=== PATIENT | male | born 1950 | race Caucasian/White ===

== ENCOUNTER 2020-06-20 15:04 | Emergency (ER) | payer MEDICARE, OTHER, SELFPAY ==
[2020-06-20 15:07] VITALS: BP 160/93; PULSE 59; RESP 14; TEMP 37.4; O2SAT 96
[2020-06-20 15:27] LABS: Add Manual Diff / Slide Review NO; Basophils Absolute Auto 0 /uL (0-100); Basophils Percent Auto 0.8 % (0-2); Eosinophils Absolute Auto 100 /uL (0-450); Eosinophils Percent Auto 1.8 % (2-4); Hematocrit 42.9 % (41-53); Hemoglobin 14.5 g/dL (13.5-17.5); Lymphocytes Absolute Auto 1900 /uL (1100-4500); Lymphocytes Percent Auto 30.5 % (25-40); Mean Corpuscular HGB Conc 33.8 % (30-36); Mean Corpuscular Hemoglobin 31.6 PG (26-34); Mean Corpuscular Volume 93.5 fL (80-100); Monocytes Absolute Auto 500 /uL (0-900); Monocytes Percent Auto 8.4 % (3-14); Neutrophils Absolute Auto 3600 /uL (1500-7000); Neutrophils Percent Auto 58.5 % (50-75); Platelet Count 199 X10^3/uL (150-400); Red Blood Cell Count 4.59 X10^6/uL (4.5-5.9); Red Cell Distribution Width 13.5 % (11.6-14.8); White Blood Cell Count 6.1 X10^3/uL (4.5-11.0)
--- NOTE | 2020-06-20 15:34 | DI.CT.S_ITS ---
PROCEDURE: CT ABDOMEN PELVIS WO CON INDICATIONS: RLQ pain, fatigue, diaphoresis, r/o appendicitis TECHNIQUE: After the administration of oral contrast, 5 mm thick sections acquired from the diaphragms to the symphysis. 5 mm coronal and sagittal reformats were performed. For radiation dose reduction, the following was used: automated exposure control, adjustment of mA and/or kV according to patient size. COMPARISON: [facility], CT, ABDOMEN/PELVIS WITHOUT CONTRAS, 04/04/2014, 9:52. FINDINGS: Image quality: Excellent. ABDOMEN: Lung bases: Minimal atelectasis or scarring at the left lung base. No pleural effusion. Heart size is normal. Solid organs: Liver is normal in size. Gallbladder is unremarkable . Pancreas is normal in size. Spleen is normal in size. No adrenal nodules. Punctate bilateral adrenal calcifications are unchanged and which may be due to prior hemorrhage. Both kidneys are normal in size, without hydronephrosis. Punctate kidney stone in the inferior pole the right kidney seen on the remote 2013 prior exam is no longer present. The small cortical hypodensity in the inferior pole of the left kidney is slightly increased in size. Small simple cyst in the inferior pole of the right kidney. Peritoneum and bowel: Bowel loops demonstrate normal wall thickness and caliber. Normal appendix. Diverticulosis. Prominent stool in the right colon. No free fluid or air. Nodes and vessels: No retroperitoneal or mesenteric adenopathy by size criteria. Coarse calcification in the pelvis is unchanged. Aorta and inferior vena cava are normal in size. Moderate calcified atherosclerotic plaque. Miscellaneous: No ventral hernias. PELVIS: Genitourinary: Bladder is unremarkable. Miscellaneous: No inguinal hernias or adenopathy. Bones: No suspicious bony lesions. Moderate DDD. No vertebral body compression fractures. IMPRESSION: 1. No acute appendicitis. 2. No hydronephrosis. No kidney stones. Note: The remote kidney stone seen in 2013 is no longer present. 3. Diverticulosis without diverticulitis. 4. Prominent stool in the right colon. Dictated by: Primitivo Taylor M.D. on 06/20/2020 at 15:56 Approved by: Primitivo Taylor M.D. on 06/20/2020 at 16:05
[2020-06-20 15:36] LABS: INR 1.1 (0.9-1.3); Prothrombin Time 12.5 SECONDS (10.1-12.7)
[2020-06-20 15:39] LABS: PTT Partial Thromboplastin Tim 33 SECONDS (26.4-36.2)
[2020-06-20 15:40] LABS: Alanine Aminotransferase 19 IU/L (<50); Albumin 4.2 g/dL (3.5-5.0); Albumin Globulin Ratio 1.4 (1.0-2.8); Alkaline Phosphatase 133 U/L (38-126); Aspartate Aminotransferase 40 IU/L (17-59); BUN Creatinine Ratio 17.2 (6-22); Bilirubin Total 1.9 mg/dL (0.2-1.3); Blood Urea Nitrogen 11 mg/dL (9-20); Calcium 9.3 mg/dL (8.4-10.2); Carbon Dioxide 26 mmol/L (22-32); Chloride 106 mmol/L (98-107); Estimated Glomerular Filt Rate > 60.0 mL/min (>60); Globulin 2.9 g/dL (1.7-4.1); Glucose 95 mg/dL (80-110); HEMOLYSIS < 15 (0-50); Lipase 78 U/L (23-300); Potassium 3.9 mmol/L (3.4-5.1); Sodium 138 mmol/L (137-145); Total Protein 7.1 g/dL (6.3-8.2)
--- NOTE | 2020-06-20 15:46 | ED.ABDPAIN ---
HPI - Abdominal Pain <DON Taylor - Last Filed: 06/20/20 21:13> General Chief Complaint: Abdominal Pain Stated Complaint: ABD PAIN SLIGHT FEVER Time Seen by Provider: 06/20/20 15:22 Source: patient Mode of arrival: Ambulatory History of Present Illness HPI narrative: 70yo male presents to the ED for right lower quadrant abdominal pain that started a few days ago. He states he has been dealing with this issue intermittently for the past month. However, approximately 3 days ago he developed worsening pain. Patient states he ate dinner last night and noticed the pain was worse, he does report a gets better when he sleeps on his left side. Patient states that he woke up in the middle the night with severe pain and sweating. This morning pain had slightly resolved. He denies any history of abdominal surgeries, diabetes, history of cancer, or other concerns. Patient denies any vomiting, does report intermittent nausea but denies diarrhea, chest pain, shortness of breath, dizziness, syncope, or other concerns. Related Data Home Medications Medication Instructions Recorded Confirmed aspirin 81 mg PO QDAY #0 06/26/16 Previous Rx's Medication Instructions Recorded lisinopril 10 mg PO QDAY #90 tab 12/23/16 Allergies Allergy/AdvReac Type Severity Reaction Status Date / Time No Known Drug Allergies Allergy Verified 06/20/20 15:10 Review of Systems <DON Taylor - Last Filed: 06/20/20 21:13> Review of Systems Narrative: REVIEW OF SYSTEMS: GENERAL: Denies fever, chills, malaise, or wt. loss. HENT: No head trauma, sore throat, or dysphagia. EYES: No loss of vision, double vision, eye pain, or irritation. CARDIOVASCULAR: No chest pain, palpitations, or orthopnea. RESPIRATORY: No shortness of breath or cough. GASTROINTESTINAL: Complains of right lower quadrant abdominal pain, see HPI GENITOURINARY: No flank pain, urinary incontinence, hesitancy, frequency, or dysuria. MUSCULOSKELETAL: No pain, weakness, or trauma. INTEGUMENTARY: No rash, lesions, or pruritus. NEURO: No numbness, tingling, memory loss, confusion, or headaches. PSYCH: No behavior or mood changes. Patient History <DON Taylor - Last Filed: 06/20/20 21:13> Medical History No significant medical problems (Acute) Social History Smoking Status: Never smoker Smoking Status: Never smoker alcohol intake frequency: 0-2 drinks per day Exam <DON Taylor - Last Filed: 06/20/20 21:13> Initial Vital Signs Initial Vital Signs: Vital Signs Temperature 99.4 F 06/20/20 15:07 Pulse Rate 59 L 06/20/20 15:07 Respiratory Rate 14 06/20/20 15:07 Blood Pressure 160/93 H 06/20/20 15:07 Pulse Oximetry 96 06/20/20 15:07 PHYSICAL EXAMINATION: GENERAL: Well groomed, alert, and cooperative. Answers questions promptly and appropriately. Vital signs noted. HENT: Normocephalic, atraumatic. Hearing intact. Oral mucosa is pink and moist. EYES: Conjunctiva pink, sclera white, no periorbital swelling. CARDIOVASCULAR: S1 and S2 sounds normal. Regular rate and rhythm, no murmurs, clicks, or bruits. No pedal edema. RESPIRATORY: Normal respiratory rate, trachea midline, airway patent. No stridor, nasal flaring or accessory muscle use. Lungs are clear in all hyatt without wheeze, rhonchi, or crackles. GASTROINTESTINAL: Bowel sounds normoactive. Abdomen is soft, right lower quadrant tender. No organomegaly, no palpable masses. GENITALURINARY: No flank tenderness. MUSCULOSKELETAL: Normal gait and coordination. Equal tone and mass bilaterally. EXTREMITIES: CMS intact, no pedal edema. SKIN: Warm, dry, soft, appropriate color for ethnicity. No lesions, rashes, or wounds to visualized areas. NEURO: Alert and Oriented X 3. Good coordination. No ataxia, or sensory deficits, or cognitive issues. PSYCH: Appropriate affect and mood. <Carlitos Harris MD - Last Filed: 06/21/20 13:29> Initial Vital Signs Initial Vital Signs: Vital Signs Temperature 99.4 F 06/20/20 15:07 Pulse Rate 59 L 06/20/20 15:07 Respiratory Rate 14 06/20/20 15:07 Blood Pressure 160/93 H 06/20/20 15:07 Pulse Oximetry 96 06/20/20 15:07 Course <Alyssa DON Liz - Last Filed: 06/20/20 21:13> Orders Ordered: ED Orders 06/20/20 15:16 EKG-12 Lead Stat 06/20/20 15:20 Complete Blood Count AUTO DIFF Stat Comprehensive Metabolic Panel Stat Lipase Stat Partial Thromboplastin Time Stat Prothrombin Time INR Stat 06/20/20 15:27 Urine Microscopic Stat 06/20/20 15:34 CT abdomen pelvis wo con Stat Vital Signs Vital signs: Vital Signs - 8 hr 06/20/20 15:07 06/20/20 17:15 Temperature 99.4 F Pulse Rate 59 L 60 Respiratory Rate 14 16 Blood Pressure 160/93 H Pulse Oximetry 96 96 <Carlitos Harris MD - Last Filed: 06/21/20 13:29> Orders Ordered: ED Orders 06/20/20 15:16 EKG-12 Lead Stat 06/20/20 15:20 Complete Blood Count AUTO DIFF Stat Comprehensive Metabolic Panel Stat Lipase Stat Partial Thromboplastin Time Stat Prothrombin Time INR Stat 06/20/20 15:27 Urine Microscopic Stat 06/20/20 15:34 CT abdomen pelvis wo con Stat Vital Signs Vital signs: Vital Signs - 8 hr 06/20/20 15:07 06/20/20 17:15 Temperature 99.4 F Pulse Rate 59 L 60 Respiratory Rate 14 16 Blood Pressure 160/93 H Pulse Oximetry 96 96 MDM - Abdominal Pain <Alyssa ThompsonDON owen - Last Filed: 06/20/20 21:13> Medical Records Attestation: I reviewed the patient's medical records. Lab Data Attestation: I reviewed the patient's lab results. Result diagrams: 06/20/20 15:20 06/20/20 15:20 Labs: Lab Results 06/20/20 06/20/20 06/20/20 Range/Units 15:20 15:20 15:20 WBC 6.1 (4.5-11.0) X10^3/uL RBC 4.59 (4.5-5.9) X10^6/uL Hgb 14.5 (13.5-17.5) g/dL Hct 42.9 (41-53) % MCV 93.5 (80-100) fL MCH 31.6 (26-34) PG MCHC 33.8 (30-36) % RDW 13.5 (11.6-14.8) % Plt Count 199 (150-400) X10^3/uL Neut % (Auto) 58.5 (50-75) % Lymph % (Auto) 30.5 (25-40) % [place] % (Auto) 8.4 (3-14) % Eos % (Auto) 1.8 L (2-4) % Baso % (Auto) 0.8 (0-2) % Neut # (Auto) 3600 (9013-3789) /uL Lymph # (Auto) 1900 (8998-4244) /uL [place] # (Auto) 500 (0-900) /uL Eos # (Auto) 100 (0-450) /uL Baso # (Auto) 0 (0-100) /uL PT 12.5 (10.1-12.7) SECONDS INR 1.1 (0.9-1.3) APTT 33 (26.4-36.2) SECONDS Sodium 138 (137-145) mmol/L Potassium 3.9 (3.4-5.1) mmol/L Chloride 106 (98-107) mmol/L Carbon Dioxide 26 (22-32) mmol/L BUN 11 (9-20) mg/dL Creatinine 0.64 L (0.66-1.25) mg/dL Estimated GFR > 60.0 (>60) mL/min BUN/Creatinine Ratio 17.2 (6-22) Glucose 95 (80-110) mg/dL Calcium 9.3 (8.4-10.2) mg/dL Total Bilirubin 1.9 H (0.2-1.3) mg/dL AST 40 (17-59) IU/L ALT 19 (<50) IU/L Alkaline Phosphatase 133 H (38-126) U/L Total Protein 7.1 (6.3-8.2) g/dL Albumin 4.2 (3.5-5.0) g/dL Globulin 2.9 (1.7-4.1) g/dL Albumin/Globulin Ratio 1.4 (1.0-2.8) Lipase 78 (23-300) U/L Urine RBC (0-5/HPF) Urine WBC (0-5/HPF) Ur Squamous Epith Cells (0-5/HPF) Amorphous Sediment Urine Bacteria (None) Urine Mucus (Negative) Ur Culture Indicated? 06/20/20 Range/Units 15:27 WBC (4.5-11.0) X10^3/uL RBC (4.5-5.9) X10^6/uL Hgb (13.5-17.5) g/dL Hct (41-53) % MCV (80-100) fL MCH (26-34) PG MCHC (30-36) % RDW (11.6-14.8) % Plt Count (150-400) X10^3/uL Neut % (Auto) (50-75) % Lymph % (Auto) (25-40) % [place] % (Auto) (3-14) % Eos % (Auto) (2-4) % Baso % (Auto) (0-2) % Neut # (Auto) (3198-1553) /uL Lymph # (Auto) (9117-3738) /uL [place] # (Auto) (0-900) /uL Eos # (Auto) (0-450) /uL Baso # (Auto) (0-100) /uL PT (10.1-12.7) SECONDS INR (0.9-1.3) APTT (26.4-36.2) SECONDS Sodium (137-145) mmol/L Potassium (3.4-5.1) mmol/L Chloride (98-107) mmol/L Carbon Dioxide (22-32) mmol/L BUN (9-20) mg/dL Creatinine (0.66-1.25) mg/dL Estimated GFR (>60) mL/min BUN/Creatinine Ratio (6-22) Glucose (80-110) mg/dL Calcium (8.4-10.2) mg/dL Total Bilirubin (0.2-1.3) mg/dL AST (17-59) IU/L ALT (<50) IU/L Alkaline Phosphatase (38-126) U/L Total Protein (6.3-8.2) g/dL Albumin (3.5-5.0) g/dL Globulin (1.7-4.1) g/dL Albumin/Globulin Ratio (1.0-2.8) Lipase (23-300) U/L Urine RBC 0-1/hpf (0-5/HPF) Urine WBC 1-5/hpf (0-5/HPF) Ur Squamous Epith Cells 0-1 /hpf (0-5/HPF) Amorphous Sediment 3+ Urine Bacteria Occasional (0-1) (None) Urine Mucus 2+ H (Negative) Ur Culture Indicated? Cult not indicated Point of care testing: Urine Dip Bedside Urine Glucose Negative Bedside Urine Bilirubin - Negative Bedside Urine Ketone + 15 Urine Specific Bude 1.015 Bedside Urine Occult Blood - Negative Bedside Urine pH 7.0 Bedside Urine Protein +/- 15 Bedside Urine Urobilinogen +/- 1mg Bedside Urine Nitrite - Negative Bedside Urine Leukocytes - Negative Esterase Imaging Data CT scan - abdomen/pelvis: Radiologist's Impression: [address] [address] [address] Scan Report Signed Patient: Piter Peters LMR#: [id number] : 2Acct:[id number] Age/Sex: 70 / MDate of Service: 06/20/20 Loc: ED Accession Number: [id number] Procedure: CT abdomen pelvis wo con Ordering Provider: Alyssa Liz PROCEDURE: CT ABDOMEN PELVIS WO CON INDICATIONS: RLQ pain, fatigue, diaphoresis, r/o appendicitis TECHNIQUE: After the administration of oral contrast, 5 mm thick sections acquired from the diaphragms to the symphysis. 5 mm coronal and sagittal reformats were performed. For radiation dose reduction, the following was used: automated exposure control, adjustment of mA and/or kV according to patient size. COMPARISON: [facility], CT, ABDOMEN/PELVIS WITHOUT CONTRAS, 04/04/2014, 9:52. FINDINGS: Image quality: Excellent. ABDOMEN: Lung bases: Minimal atelectasis or scarring at the left lung base. No pleural effusion. Heart size is normal. Solid organs: Liver is normal in size. Gallbladder is unremarkable . Pancreas is normal in size. Spleen is normal in size. No adrenal nodules. Punctate bilateral adrenal calcifications are unchanged and which may be due to prior hemorrhage. Both kidneys are normal in size, without hydronephrosis. Punctate kidney stone in the inferior pole the right kidney seen on the remote 2013 prior exam is no longer present. The small cortical hypodensity in the inferior pole of the left kidney is slightly increased in size. Small simple cyst in the inferior pole of the right kidney. Peritoneum and bowel: Bowel loops demonstrate normal wall thickness and caliber. Normal appendix. Diverticulosis. Prominent stool in the right colon. No free fluid or air. Nodes and vessels: No retroperitoneal or mesenteric adenopathy by size criteria. Coarse calcification in the pelvis is unchanged. Aorta and inferior vena cava are normal in size. Moderate calcified atherosclerotic plaque. Miscellaneous: No ventral hernias. PELVIS: Genitourinary: Bladder is unremarkable. Miscellaneous: No inguinal hernias or adenopathy. Bones: No suspicious bony lesions. Moderate DDD. No vertebral body compression fractures. IMPRESSION: 1. No acute appendicitis. 2. No hydronephrosis. No kidney stones. Note: The remote kidney stone seen in 2013 is no longer present. 3. Diverticulosis without diverticulitis. 4. Prominent stool in the right colon. Dictated by: Primitivo Taylor M.D. on 06/20/2020 at 15:56 Approved by: Primitivo Taylor M.D. on 06/20/2020 at 16:05 MDM Narrative Medical decision making narrative: 70-year-old male presents emergency department for right lower quadrant abdominal pain. Less likely infectious such as acute appendicitis given mode blood cell count, patient is afebrile, non tachycardic, and no visualized appendicitis or inflammation seen on abdominal CT. Less likely renal calculi given lack of renal calculi seen on CT, no flank pain. Unsure exact cause, differential includes constipation given stool seen on CT or muscle strain. Less likely gallbladder etiology given lack of concerning findings on CT, no right upper quadrant abdominal pain. However, patient was informed of slightly elevated liver enzymes and bilirubin, he states this has been present in his history in the past for the past few years. Patient was encouraged to follow up with his PCP in the next 1-2 weeks for further evaluation and discussion of possible further testing symptoms continue. Return precautions given for new or worsening symptoms. Patient agreed to plan of care verbalized understanding. <Carlitos Harris MD - Last Filed: 06/21/20 13:29> Lab Data Labs: Lab Results 06/20/20 06/20/20 06/20/20 Range/Units 15:20 15: 15: WBC 6.1 (4.5-11.0) X10^3/uL RBC 4.59 (4.5-5.9) X10^6/uL Hgb 14.5 (13.5-17.5) g/dL Hct 42.9 (41-53) % MCV 93.5 (80-100) fL MCH 31.6 (26-34) PG MCHC 33.8 (30-36) % RDW 13.5 (11.6-14.8) % Plt Count 199 (150-400) X10^3/uL Neut % (Auto) 58.5 (50-75) % Lymph % (Auto) 30.5 (25-40) % [place]t % (Auto) 8.4 (3-14) % Eos % (Auto) 1.8 L (2-4) % Baso % (Auto) 0.8 (0-2) % Neut # (Auto) 3600 (2429-5069) /uL Lymph # (Auto) 1900 (4881-7848) /uL [place] # (Auto) 500 (0-900) /uL Eos # (Auto) 100 (0-450) /uL Baso # (Auto) 0 (0-100) /uL PT 12.5 (10.1-12.7) SECONDS INR 1.1 (0.9-1.3) APTT 33 (26.4-36.2) SECONDS Sodium 138 (137-145) mmol/L Potassium 3.9 (3.4-5.1) mmol/L Chloride 106 (98-107) mmol/L Carbon Dioxide 26 (22-32) mmol/L BUN 11 (9-20) mg/dL Creatinine 0.64 L (0.66-1.25) mg/dL Estimated GFR > 60.0 (>60) mL/min BUN/Creatinine Ratio 17.2 (6-22) Glucose 95 (80-110) mg/dL Calcium 9.3 (8.4-10.2) mg/dL Total Bilirubin 1.9 H (0.2-1.3) mg/dL AST 40 (17-59) IU/L ALT 19 (<50) IU/L Alkaline Phosphatase 133 H (38-126) U/L Total Protein 7.1 (6.3-8.2) g/dL Albumin 4.2 (3.5-5.0) g/dL Globulin 2.9 (1.7-4.1) g/dL Albumin/Globulin Ratio 1.4 (1.0-2.8) Lipase 78 (23-300) U/L Urine RBC (0-5/HPF) Urine WBC (0-5/HPF) Ur Squamous Epith Cells (0-5/HPF) Amorphous Sediment Urine Bacteria (None) Urine Mucus (Negative) Ur Culture Indicated? 06/20/20 Range/Units 15:27 WBC (4.5-11.0) X10^3/uL RBC (4.5-5.9) X10^6/uL Hgb (13.5-17.5) g/dL Hct (41-53) % MCV (80-100) fL MCH (26-34) PG MCHC (30-36) % RDW (11.6-14.8) % Plt Count (150-400) X10^3/uL Neut % (Auto) (50-75) % Lymph % (Auto) (25-40) % [place] % (Auto) (3-14) % Eos % (Auto) (2-4) % Baso % (Auto) (0-2) % Neut # (Auto) (9966-0448) /uL Lymph # (Auto) (2583-6734) /uL [place] # (Auto) (0-900) /uL Eos # (Auto) (0-450) /uL Baso # (Auto) (0-100) /uL PT (10.1-12.7) SECONDS INR (0.9-1.3) APTT (26.4-36.2) SECONDS Sodium (137-145) mmol/L Potassium (3.4-5.1) mmol/L Chloride (98-107) mmol/L Carbon Dioxide (22-32) mmol/L BUN (9-20) mg/dL Creatinine (0.66-1.25) mg/dL Estimated GFR (>60) mL/min BUN/Creatinine Ratio (6-22) Glucose (80-110) mg/dL Calcium (8.4-10.2) mg/dL Total Bilirubin (0.2-1.3) mg/dL AST (17-59) IU/L ALT (<50) IU/L Alkaline Phosphatase (38-126) U/L Total Protein (6.3-8.2) g/dL Albumin (3.5-5.0) g/dL Globulin (1.7-4.1) g/dL Albumin/Globulin Ratio (1.0-2.8) Lipase (23-300) U/L Urine RBC 0-1/hpf (0-5/HPF) Urine WBC 1-5/hpf (0-5/HPF) Ur Squamous Epith Cells 0-1 /hpf (0-5/HPF) Amorphous Sediment 3+ Urine Bacteria Occasional (0-1) (None) Urine Mucus 2+ H (Negative) Ur Culture Indicated? Cult not indicated Point of care testing: Urine Dip Bedside Urine Glucose Negative Bedside Urine Bilirubin - Negative Bedside Urine Ketone + 15 Urine Specific Bude 1.015 Bedside Urine Occult Blood - Negative Bedside Urine pH 7.0 Bedside Urine Protein +/- 15 Bedside Urine Urobilinogen +/- 1mg Bedside Urine Nitrite - Negative Bedside Urine Leukocytes - Negative Esterase Discharge Plan Departure Patient Disposition: Home Clinical Impression: Abdominal pain Qualifiers: Abdominal location: generalized Qualified Code(s): R10.84 - Generalized abdominal pain Discharge Date/Time: 06/20/20 17:16 Instructions: DI for Abdominal Pain-Adult Activity Restrictions/Additional Instructions: Thank you for entrusting me with your care today. As discussed, your CT shows a large amount of stool in the right side of your colon. Your laboratory work shows slightly elevated bilirubin. I recommend increasing fiber in your diet. Please follow up with your primary care provider in the next 1-2 weeks for further evaluation. Return emergency department for any new or worsening symptoms such as high fever, uncontrollable vomiting, severe pain, or other concerns. Prescriptions: No Action aspirin 81 MG tablet,chewable 81 mg PO QDAY Qty: 0 RF: 0 lisinopril 10 MG tablet 10 mg PO QDAY Qty: 90 RF: 3 Referrals: Lewis Coker MD [Primary Care Provider] - <Carlitos Harris MD - Last Filed: 06/21/20 13:29> Cosign ED Attending Cosignature Attestation: I personally evaluated and examined the patient and agree with the assessment, treatment plan, and disposition of the patient as recorded by the APC.
[2020-06-20 15:53] LABS: Amorphous Sediment Urine 3+; Bacteria Urine Occasional (0-1); Mucus Urine 2+ (Negative); RBC Urine 0-1/HPF (0-5/HPF); Squamous Epithelial Cell Urine 0-1 /HPF (0-5/HPF); WBC Urine 1-5/HPF (0-5/HPF)
[2020-06-20 15:54] LABS: Culture Indicated Urine Cult Not Indicated
[2020-06-20 17:15] VITALS: PULSE 60; RESP 16; O2SAT 96
== END 2020-06-20 17:16 | disposition home or self-care (01) ==
PROVIDERS: Emergency Medicine; Emergency Provider Nurse Practitioner; PCP Family Medicine
DX: R10.84 Generalized abdominal pain (principal)
CPT/HCPCS: 74176; 80053; 81003; 81015; 83690; 85025; 85610; 85730; 93005; 99282; 99284

== ENCOUNTER 2023-04-28 11:05 | Emergency (ER) | payer MEDICARE, OTHER, SELFPAY ==
[2023-04-28 11:07] VITALS: BP 186/92; PULSE 67; RESP 17; TEMP 36.3; O2SAT 99; BMI 21.2
--- NOTE | 2023-04-28 11:33 | ED.SKABFB ---
HPI - Skin/Abscess/Foreign Bdy <Carina Valles PA-C - Last Filed: 04/28/23 13:23> General Chief complaint: Skin/Abscess/Foreign Body Stated complaint: swelling RT side of face Time Seen by Provider: 04/28/23 11:20 Source: patient Mode of arrival: Ambulatory Limitations: no limitations History of Present Illness HPI narrative: 73-year-old male with past medical history polymyalgia rheumatica, Raynaud's phenomenon, hypertension, osteoarthritis presents to the ED with 2 days of right-sided facial swelling, burning pain, rash. Patient states that his symptoms started around his right eye, feels his upper eyelid is heavy and droopy. Patient describes pain as burning, feeling like his skin is on fire on the right side of his face and scalp. Patient states his symptoms are especially worse on his upper lip and around the eyes. Patient denies changes in vision, pain inside the eye. Patient states he saw some discharge this morning with some crusting, however it is not purulent. Patient denies fever, chills, chest pain, shortness of breath. Related Data Home Medications Medication Instructions Recorded Confirmed aspirin 81 mg chewable tablet 81 mg PO QDAY ##0 06/26/16 04/25/22 Previous Rx's Medication Instructions Recorded pimecrolimus 1 % topical cream 1 applic topical BID #30 grams 05/11/21 (Elidel) hydrochlorothiazide 12.5 mg capsule 12.5 mg PO DAILY #90 caps 05/01/22 losartan 100 mg tablet 100 mg PO DAILY #90 tabs 05/01/22 cephalexin 500 mg capsule 500 mg PO Q8H 5 days #15 caps 04/28/23 gabapentin 300 mg capsule See Rx Instructions .Route 04/28/23 .COMPLEX 10 days #30 caps valacyclovir 1 gram tablet 1,000 mg PO Q8H 7 days #21 tabs 04/28/23 Allergies Allergy/AdvReac Type Severity Reaction Status Date / Time No Known Drug Allergies Allergy Verified 04/28/23 11:11 Review of Systems <Carina Valles PA-C - Last Filed: 04/28/23 13:23> Review of Systems ROS Unobtainable: All systems reviewed & are unremarkable except as noted in HPI and below Constitutional Constitutional: Denies chills, Denies fatigue, Denies fever(s), Denies frequent falls, Denies lethargy and Denies weakness Eyes Eyes: Denies change in vision, Denies eye discharge, Denies irritation and Denies loss of vision Comments: Right eyelid swelling, pain. ENT Ears, Nose, Mouth, and Throat: Denies change in voice, Denies dizziness, Reports facial pain, Denies neck pain, Denies sore throat and Denies throat swelling Comments: Right facial and scalp swelling, redness, burning pain Cardiovascular Cardiovascular: Denies chest pain, Denies irregular heart rhythm, Denies lightheadedness, Denies palpitations, Denies dyspnea, Denies dyspnea on exertion and Denies orthopnea Respiratory Respiratory: Denies cough, Denies dyspnea, Denies dyspnea on exertion and Denies wheezing Gastrointestinal Gastrointestinal: Denies abdominal pain, Denies change in bowel habits, Denies diarrhea, Denies nausea and Denies vomiting Genitourinary Genitourinary: Denies hematuria, Denies flank pain, Denies urinary incontinence and Denies urinary urgency Musculoskeletal Musculoskeletal: Denies back pain, Denies muscle weakness, Denies neck pain, Denies numbness and Denies tingling Integumentary/Breasts Skin/Breast: Denies pruritus, Denies erythema, Denies rash and Denies wounds Neurologic Neurologic: Denies behavioral changes, Denies confusion, Denies dizziness, Denies frequent falls, Denies loss of vision, Denies numbness, Denies tingling and Denies weakness Psychiatric Psychiatric: Denies anxiety, Denies behavioral changes, Denies confusion, Denies depression, Denies homicidal ideation and Denies suicidal ideation Endocrine Endocrine: Denies fatigue, Denies flushing and Denies palpitations Hematologic/Lymphatic Hematologic/Lymphatic: Denies easy bruising Allergic/Immunologic Allergic/Immunologic: Denies urticaria, Denies throat swelling and Denies wheezing Patient History <Carina Valles PA-C - Last Filed: 04/28/23 13:23> Medical History Cardiac arrhythmia Eczema Family history of prostate cancer Hearing loss (~2014) History of kidney stones Knee pain (~1971) No significant medical problems Osteoarthritis (~2014) Polymyalgia rheumatica Family History Father Stroke Mother Cancer Grandfather History of heart disease Grandfather History of heart disease Social History Smoking Status: Never smoker Smoking Status: Never smoker alcohol intake frequency: 0-2 drinks per day Exam <Carina Valles PA-C - Last Filed: 04/28/23 13:23> Narrative Exam Narrative: Const General:?cooperative, healthy appearing and comfortable [facility] Head:?normal to inspection; no rash or vesicles noted to the scalp Ears:?hearing grossly normal bilaterally Nose:?external nose normal Face and sinus:? Vesicles noted to right side of the nose. Right side of the face looks overall swollen, erythematous. Mouth:? Vesicles noted to the top of the right upper lip and on upper lip. Some lesions are crusted over. Throat:?posterior oropharynx normal Eyes General:? Right upper and lower eyelids appear swollen, erythematous, there is some yellow crusting noted to the right side of the right eye. Visual acuity is 20/50 with glasses in the right eye, 20/25 with glasses in the left eye, 20/20 with glasses both eyes. Neck Neck:?normal visual inspection and no lymphadenopathy noted Resp Effort & Inspection:?normal respiratory effort Auscultation:?clear to auscultation bilaterally Cardio Rate:?regular rate Rhythm:?regular rhythm Neuro General:?patient alert, patient awake and patient oriented x3 Initial Vital Signs Initial Vital Signs: Vital Signs Temperature 97.4 F L 04/28/23 11:07 Pulse Rate 67 04/28/23 11:07 Respiratory Rate 17 04/28/23 11:07 Blood Pressure 186/92 H 04/28/23 11:07 Pulse Oximetry 99 04/28/23 11:07 Oxygen Delivery Method Room Air 04/28/23 11:07 <Melchor Salinas DO - Last Filed: 04/28/23 14:12> Initial Vital Signs Initial Vital Signs: Vital Signs Temperature 97.4 F L 04/28/23 11:07 Pulse Rate 67 04/28/23 11:07 Respiratory Rate 17 04/28/23 11:07 Blood Pressure 186/92 H 04/28/23 11:07 Pulse Oximetry 99 04/28/23 11:07 Oxygen Delivery Method Room Air 04/28/23 11:07 Course <Carina Valles PA-C - Last Filed: 04/28/23 13:23> Orders Ordered: Discontinued Medications Cephalexin HCl (Cephalexin 250 Mg Capsule) 500 mg PO NOW ONE Stop: 04/28/23 12:01 Last Admin: 04/28/23 12:05 Dose: 500 mg Documented By: LINNEA Gabapentin (Gabapentin 300 Mg Capsule) 300 mg PO NOW ONE Stop: 04/28/23 12:01 Last Admin: 04/28/23 12:05 Dose: 300 mg Documented By: LINNEA Valacyclovir HCl (Valacyclovir 500 Mg Tablet) 1,000 mg PO NOW ONE Stop: 04/28/23 12:00 Last Admin: 04/28/23 12:05 Dose: 1,000 mg Documented By: LINNEA Vital Signs Vital signs: Vital Signs - 8 hr 04/28/23 11:07 Temperature 97.4 F L Pulse Rate 67 Respiratory Rate 17 Blood Pressure 186/92 H Pulse Oximetry 99 Oxygen Delivery Method Room Air <Melchor Salinas DO - Last Filed: 04/28/23 14:12> Orders Ordered: Discontinued Medications Cephalexin HCl (Cephalexin 250 Mg Capsule) 500 mg PO NOW ONE Stop: 04/28/23 12:01 Last Admin: 04/28/23 12:05 Dose: 500 mg Documented By: LINNEA Gabapentin (Gabapentin 300 Mg Capsule) 300 mg PO NOW ONE Stop: 04/28/23 12:01 Last Admin: 04/28/23 12:05 Dose: 300 mg Documented By: LINNEA Valacyclovir HCl (Valacyclovir 500 Mg Tablet) 1,000 mg PO NOW ONE Stop: 04/28/23 12:00 Last Admin: 04/28/23 12:05 Dose: 1,000 mg Documented By: LINNEA Vital Signs Vital signs: Vital Signs - 8 hr 04/28/23 11:07 Temperature 97.4 F L Pulse Rate 67 Respiratory Rate 17 Blood Pressure 186/92 H Pulse Oximetry 99 Oxygen Delivery Method Room Air MDM - Skin/Abscess/Foreign Bdy <Carina Valles PA-C - Last Filed: 04/28/23 13:23> MDM Narrative Medical decision making narrative: 73-year-old male with past medical history polymyalgia rheumatica, Raynaud's phenomenon, hypertension, osteoarthritis presents to the ED with 2 days of right-sided facial swelling, burning pain, rash. Concern for herpes zoster versus herpes zoster ophthalmicus. Will start patient on valacyclovir, cephalexin, gabapentin. First dose of medications given in the ED. Dr. Clark from Ophthalmology was consulted, she will see the patient right after we discharge the patient from the ED. prescriptions sent to [facility]. Discussed findings with patient, patient agrees to go see Dr. Clark right after this ED visit. ED return precautions were also discussed with patient. Patient verbalized understanding. Medical records reviewed: Yes Discharge Plan Departure Patient Disposition: Home Clinical Impression: Shingles Instructions: DI for Shingles Activity Restrictions/Additional Instructions: You were evaluated in the ED today for right-sided facial pain, blisters. Your symptoms are likely due to shingles. There is also concern that your eye may be involved, for which we have consulted furnace checker Dr. Clark who will see you right after this emergency room visit. Their phone number is [phone] in case you need to call them. You are being started on valacyclovir which is an antiviral, cephalexin which is a antibiotic, and gabapentin which is a pain medication for nerve pain. Please take those as prescribed. Return to the ED if you have worsening symptoms. Prescriptions: New valacyclovir 1 gram tablet 1,000 mg PO Q8H 7 Days Qty: 21 0RF cephalexin 500 mg capsule 500 mg PO Q8H 5 Days Qty: 15 0RF gabapentin 300 mg capsule See Rx Instructions .ROUTE .COMPLEX 10 Days Qty: 30 0RF Rx Instructions: 300 mg once on day one, 300 mg twice daily on day 2, and 300 mg 3 times daily on day 3, then increase as needed up to 1.8 to 3.6 g/day in divided doses. No Action aspirin 81 MG tablet,chewable 81 mg PO QDAY Qty: 0 losartan 100 mg tablet 100 mg PO DAILY Qty: 90 3RF hydrochlorothiazide 12.5 mg capsule 12.5 mg PO DAILY Qty: 90 3RF pimecrolimus [Elidel] 1 % cream 1 applic topical BID Qty: 30 1RF Referrals: Jose Juan Kingsley DO [Primary Care Provider] - Stand Alone Forms: Patient Portal/API <Melchor Salinas DO - Last Filed: 04/28/23 14:12> Cosign ED Attending Cosignature Attestation: Dr Salinas Co-Sign Statement: I was available for consultation during this patient's emergency department visit. This chart is signed by myself for administrative purposes only. I did not have direct contact with this patient during this visit. They were seen independently by the APC.
[2023-04-28] MEDS: GABAPENTIN 300 MG CAPSULE PO (12:05)
[2023-04-28] MEDS: cephALEXin 250 MG CAPSULE 500 MG PO (12:05)
[2023-04-28] MEDS: valACYclovir 500 MG TABLET 1000 MG PO (12:05)
== END 2023-04-28 13:06 | disposition home or self-care (01) ==
PROVIDERS: Emergency Provider Student in an Organized Health Care Education/Training Program; PCP Family Medicine
DX: B02.9 Zoster without complications (principal)
CPT/HCPCS: 99283

== ENCOUNTER → 2023-06-02 09:50 | Outpatient (CLI) | payer MEDICARE, OTHER, SELFPAY ==
[2023-06-02 19:48] LABS: Alanine Aminotransferase 22 IU/L (<50); Albumin 3.9 g/dL (3.5-5.0); Albumin Globulin Ratio 1.6 (1.0-2.8); Alkaline Phosphatase 154 U/L (38-126); Aspartate Aminotransferase 35 IU/L (17-59); BUN Creatinine Ratio 22.4 (6-22); Bilirubin Total 1.1 mg/dL (0.2-1.3); Blood Urea Nitrogen 15 mg/dL (9-20); Carbon Dioxide 28 mmol/L (22-32); Chloride 106 mmol/L (98-107); Cholesterol 186 mg/dL (140-199); Estimated Glomerular Filt Rate > 60 mL/min (>60); Globulin 2.5 g/dL (1.7-4.1); Glucose 94 mg/dL (80-110); HDL Cholesterol 51 mg/dL (40-60); HEMOLYSIS < 15 (0-50); Potassium 4.4 mmol/L (3.4-5.1); Sodium 139 mmol/L (137-145); Total Protein 6.4 g/dL (6.3-8.2)
[2023-06-02 19:55] LABS: Add Manual Diff / Slide Review NO; Basophils Absolute Auto 0 /uL (0-100); Eosinophils Absolute Auto 200 /uL (0-450); Eosinophils Percent Auto 3.6 % (2-4); Hematocrit 40.7 % (41-53); Lymphocytes Absolute Auto 1400 /uL (1100-4500); Lymphocytes Percent Auto 29.2 % (25-40); Mean Corpuscular HGB Conc 34.4 % (30-36); Mean Corpuscular Hemoglobin 32.4 PG (26-34); Mean Corpuscular Volume 93.9 fL (80-100); Monocytes Absolute Auto 400 /uL (0-900); Monocytes Percent Auto 9.1 % (3-14); Neutrophils Absolute Auto 2700 /uL (1500-7000); Neutrophils Percent Auto 57.1 % (50-75); Platelet Count 208 X10^3/uL (150-400); Red Blood Cell Count 4.33 X10^6/uL (4.5-5.9); Red Cell Distribution Width 14.4 % (11.6-14.8); White Blood Cell Count 4.7 X10^3/uL (4.5-11.0)
[2023-06-02 20:51] LABS: Prostate Specific Antigen Scrn 0.304 ng/mL (0.1-4.0)
[2023-06-02 20:59] LABS: LDL Cholesterol Calculated 125 mg/dL (<100); Triglycerides 51 mg/dL (35-150)
== END ==
PROVIDERS: PCP Family Medicine; Visit Provider Family Medicine
DX: B02.9 Zoster without complications (principal); R74.8 Abnormal levels of other serum enzymes; Z12.5 Encounter for screening for malignant neoplasm of prostate; I10 Essential (primary) hypertension; Z13.6 Encounter for screening for cardiovascular disorders
CPT/HCPCS: 80053; 80061; 85025; G0103

== ENCOUNTER → 2024-08-12 08:59 | Outpatient (CLI) | payer MEDICARE, OTHER, SELFPAY ==
[2024-08-12 18:53] LABS: Alanine Aminotransferase 22 IU/L (<50); Albumin 3.7 g/dL (3.5-5.0); Albumin Globulin Ratio 1.4 (1.0-2.8); Alkaline Phosphatase 138 U/L (38-126); Aspartate Aminotransferase 42 IU/L (17-59); BUN Creatinine Ratio 18.3 (6-22); Bilirubin Total 1.3 mg/dL (0.2-1.3); Bilirubin Unconjugated 1.2 mg/dL (0.0-1.1); Blood Urea Nitrogen 13 mg/dL (9-20); Calcium 9.2 mg/dL (8.4-10.2); Carbon Dioxide 28 mmol/L (22-32); Chloride 104 mmol/L (98-107); Cholesterol 174 mg/dL (140-199); Estimated Glomerular Filt Rate > 60 mL/min (>60); Globulin 2.7 g/dL (1.7-4.1); Glucose 96 mg/dL (80-110); HDL Cholesterol 50 mg/dL (40-60); HEMOLYSIS < 15 (0-50); LDL Cholesterol Calculated 112 mg/dL (<100); Sodium 137 mmol/L (137-145); Total Protein 6.4 g/dL (6.3-8.2); Triglycerides 59 mg/dL (35-150)
== END ==
PROVIDERS: PCP Family Medicine; Visit Provider Family Medicine
DX: I10 Essential (primary) hypertension (principal); R74.8 Abnormal levels of other serum enzymes
CPT/HCPCS: 80048; 80061; 80076

== ENCOUNTER 2024-12-26 18:10 | Observation (INO) | payer MEDICARE, OTHER, SELFPAY ==
[2024-12-26 18:14] VITALS: BP 205/103; PULSE 53; RESP 16; TEMP 36.8; O2SAT 99; BMI 22.4
[2024-12-26] MEDS: ONDANSETRON 4 MG/2 ML INJ IV ×2 (18:36→23:50)
[2024-12-26 18:38] LABS: Add Manual Diff / Slide Review NO; Basophils Absolute Auto 0 /uL (0-100); Basophils Percent Auto 0.4 % (0-2); Eosinophils Absolute Auto 0 /uL (0-450); Eosinophils Percent Auto 0.2 % (2-4); Hematocrit 43.1 % (41-53); Hemoglobin 14.9 g/dL (13.5-17.5); Lymphocytes Absolute Auto 1100 /uL (1100-4500); Lymphocytes Percent Auto 9.9 % (25-40); Mean Corpuscular HGB Conc 34.6 % (30-36); Mean Corpuscular Hemoglobin 31.7 PG (26-34); Mean Corpuscular Volume 91.7 fL (80-100); Monocytes Absolute Auto 400 /uL (0-900); Monocytes Percent Auto 3.7 % (3-14); Neutrophils Absolute Auto 9400 /uL (1500-7000); Neutrophils Percent Auto 85.8 % (50-75); Platelet Count 232 X10^3/uL (150-400); Red Cell Distribution Width 13.7 % (11.6-14.8); White Blood Cell Count 10.9 X10^3/uL (4.5-11.0)
--- NOTE | 2024-12-26 18:43 | EKG_ITS ---
[facility] [address] [place] [address] Test Date: 2024-12-26 Pat Name: Marky Peters Department: [facility] Room: Gender: Male [employer] Maintenance: LEDA : 1950 Requested By: Order Number: [id number] Reading MD: Camilo Echeverria Measurements Intervals [place] Rate: 52 P: -8 AK: 158 QRS: 50 QRSD: 110 T: 71 QT: 454 QTc: 422 Interpretive Statements Sinus bradycardia Minimal voltage criteria for LVH, may be normal variant ( Klye product ) Electronically Signed On 12-27-2024 7:24:26 PST by Camilo Echeverria
[2024-12-26 18:50] LABS: Albumin 4.7 g/dL (3.5-5.0); Albumin Globulin Ratio 1.5 (1.0-2.8); Alkaline Phosphatase 172 U/L (38-126); Aspartate Aminotransferase 41 IU/L (17-59); BUN Creatinine Ratio 14.3 (6-22); Bilirubin Total 1.5 mg/dL (0.2-1.3); Blood Urea Nitrogen 10 mg/dL (9-20); Calcium 9.7 mg/dL (8.4-10.2); Carbon Dioxide 24 mmol/L (22-32); Chloride 101 mmol/L (98-107); Estimated Glomerular Filt Rate > 60 mL/min (>60); Globulin 3.2 g/dL (1.7-4.1); Glucose 148 mg/dL (80-110); HEMOLYSIS < 15 (0-50); Lipase 68 U/L (23-300); Sodium 137 mmol/L (137-145); Total Protein 7.9 g/dL (6.3-8.2)
[2024-12-26 18:51] LABS: Alanine Aminotransferase 24 IU/L (<50)
--- NOTE | 2024-12-26 20:55 | PC.NURSE ---
@ 5498 pt denied back pain.
[2024-12-26 23:14] VITALS: PULSE 62; O2SAT 98
[2024-12-26 23:15] VITALS: BP 217/102; PULSE 61; RESP 19; O2SAT 99
--- NOTE | 2024-12-26 23:23 | ED_ITS ---
HPI - Abdominal Pain General Chief Complaint: Abdominal Pain Stated Complaint: abd pain Time Seen by Provider: 12/26/24 23:23 Source: patient and family Mode of arrival: Ambulatory History of Present Illness HPI narrative: 74-year-old male with a history of hypertension hyperlipidemia comes into the ED from home for evaluation of abdominal pain states it started approximately 3 hours prior to arrival states it is primarily to his right upper quadrant/epigastric region. He states that this started spontaneously has been waxing and waning in nature, states that it is slightly improved now but was having 10/10 pain earlier on which is why he presented to the emergency department. He denies any other symptoms such as headache visual disturbances chest pain shortness breath fever chills nausea vomiting or any other GI/ some time. Related Data Home Medications Medication Instructions Recorded Confirmed aspirin 81 mg chewable tablet 81 mg PO QDAY ##0 06/26/16 07/23/24 Previous Rx's Medication Instructions Recorded amlodipine 5 mg tablet 5 mg PO DAILY #90 tabs 12/23/24 losartan 100 1 tab PO DAILY #90 tabs 12/23/24 mg-hydrochlorothiazide 25 mg tablet Allergies Allergy/AdvReac Type Severity Reaction Status Date / Time No Known Drug Allergies Allergy Verified 12/26/24 18:14 Review of Systems Review of Systems Narrative: General: Denies fever, chills, weight loss HEENT: Denies headache, eye drainage, eye irritation, head trauma, sore throat, voice change Cardiovascular: Denies any chest pain, palpitations, shortness of breath, tachycardia Respiratory: Denies any shortness of breath, cough, wheeze, stridor GI/: Positive abdominal pain, nausea, vomiting, diarrhea, bright red blood per rectum, melanotic stools, urinary frequency, urinary retention, dysuria, hematuria MSK: Denies any joint pain, muscle pains, swelling Skin: Denies any rashes, lesions, discoloration Neuro: Denies any headache, lightheadedness, dizziness, fainting, weakness Psych: Denies SI/HI Patient History Medical History (Updated 12/27/24 @ 00:22 by Antione Collazo DO) Hearing loss (~2014) Cardiac arrhythmia History of kidney stones Family history of prostate cancer No significant medical problems Family History Father Stroke Mother Cancer Grandfather History of heart disease Grandfather History of heart disease Social History Smoking Status: Never smoker Smoking Status: Never smoker alcohol intake frequency: 0-2 drinks per day Exam Narrative Exam Narrative: General: Cooperative, comfortable, well-developed, not in acute distress HEENT: Normocephalic, atraumatic, PERRLA, normal sclera, eyelids normal, Neck: Active full range of motion, atraumatic Chest: Normal to inspection, negative crepitus, no overlying erythema ecchymosis Respiratory: Normal respiratory effort, not in acute respiratory distress, clear to auscultation bilaterally negative cough, wheeze, tachypnea, rhonchi, rales Cardiology: Regular rate rhythm negative gallop, murmur, rubs GI/: Normal to inspection, soft, nonrigid, no tenderness to palpation, exam deferred MSK: Full range of active range of motion of all 4 extremities, atraumatic Skin: No rashes lesions noted Neuro: Alert awake oriented x3, moves all 4 extremities spontaneously, cranial nerves intact, able to answer all questions appropriately follows commands appropriately Psych: Cooperative, negative suicidal or homicidal ideations Initial Vital Signs Initial Vital Signs: Vital Signs Temperature 98.2 F 12/26/24 18:14 Pulse Rate 53 L 12/26/24 18:14 Respiratory Rate 16 12/26/24 18:14 Blood Pressure 205/103 H 12/26/24 18:14 Pulse Oximetry 99 12/26/24 18:14 Oxygen Delivery Method Room Air 12/26/24 18:14 Course Orders Ordered: ED Orders 12/26/24 18:21 EKG-12 Lead Stat 12/26/24 18:29 Complete Blood Count AUTO DIFF Stat Comprehensive Metabolic Panel Stat Lipase Stat 12/26/24 23:26 CT abdomen pelvis w con Stat 12/26/24 23:33 CXR [XR chest 1V] Stat 12/26/24 23:35 Lactate (Lactic Acid) Stat MAG [Magnesium] Stat Troponin & CK Cardiac Panel Stat 12/26/24 23:55 UA Complete [Urinalysis and Microscopic] Stat Ondansetron HCl (Ondansetron 4 Mg/2 Ml Inj) 4 mg IV NOW PRN PRN Reason: Nausea And Vomiting Last Admin: 12/26/24 18:36 Dose: 4 mg Documented By: TC Ondansetron HCl (Ondansetron 4 Mg Odt) 4 mg PO NOW PRN PRN Reason: Nausea And Vomiting Discontinued Medications Piperacillin Sod/Tazobactam (Sod 4.5 gm/ Sodium Chloride) 100 mls @ 200 mls/hr IV NOW ONE Stop: 12/27/24 00:21 Last Infusion: 12/27/24 01:05 Dose: Infused Documented By: Admin: 12/27/24 00:27 Dose: 200 mls/hr Documented By: Morphine Sulfate (Morphine 4 Mg/Ml Inj) 4 mg IV NOW ONE Stop: 12/26/24 23:25 Last Admin: 12/26/24 23:50 Dose: 4 mg Documented By: Ondansetron HCl (Ondansetron 4 Mg/2 Ml Inj) 4 mg IV NOW ONE Stop: 12/26/24 23:25 Last Admin: 12/26/24 23:50 Dose: 4 mg Documented By: Vital Signs Vital signs: Vital Signs - 8 hr 12/26/24 23:14 12/26/24 23:15 12/26/24 23:15 Pulse Rate 62 61 Respiratory Rate 19 Blood Pressure 217/102 H Pulse Oximetry 98 99 12/26/24 23:30 12/26/24 23:30 12/26/24 23:52 Pulse Rate 66 Respiratory Rate Blood Pressure 203/94 H 214/94 H Pulse Oximetry 98 12/26/24 23:52 12/27/24 00:00 12/27/24 00:01 Pulse Rate 66 69 Respiratory Rate 16 19 Blood Pressure 194/102 H Pulse Oximetry 99 97 12/27/24 00:01 12/27/24 00:30 12/27/24 00:30 Pulse Rate 70 74 Respiratory Rate Blood Pressure 192/112 H Pulse Oximetry 97 98 12/27/24 01:00 12/27/24 01:00 12/27/24 01:30 Pulse Rate 71 70 Respiratory Rate 18 32 H Blood Pressure 171/91 H Pulse Oximetry 95 92 12/27/24 01:30 12/27/24 02:00 12/27/24 02:00 Pulse Rate 67 Respiratory Rate 34 H Blood Pressure 177/92 H 171/93 H Pulse Oximetry 96 MDM - Abdominal Pain Differential Diagnosis Differential diagnosis: Likely other (ACS, pneumonia, pancreatitis, cholecystitis, electrolyte abnormality) Lab Data 12/26/24 18:29 12/26/24 18:29 Labs: Lab Results 12/26/24 12/26/24 12/26/24 Range/Units 18:29 23:35 23:55 WBC 10.9 (4.5-11.0) X10^3/uL RBC 4.70 (4.5-5.9) X10^6/uL Hgb 14.9 (13.5-17.5) g/dL Hct 43.1 (41-53) % MCV 91.7 (80-100) fL MCH 31.7 (26-34) PG MCHC 34.6 (30-36) % RDW 13.7 (11.6-14.8) % Plt Count 232 (150-400) X10^3/uL Neut % (Auto) 85.8 H (50-75) % Lymph % (Auto) 9.9 L (25-40) % [place] % (Auto) 3.7 (3-14) % Eos % (Auto) 0.2 L (2-4) % Baso % (Auto) 0.4 (0-2) % Neut # (Auto) 9400 H (8501-3771) /uL Lymph # (Auto) 1100 (3534-0632) /uL [place] # (Auto) 400 (0-900) /uL Eos # (Auto) 0 (0-450) /uL Baso # (Auto) 0 (0-100) /uL Sodium 137 (137-145) mmol/L Potassium 4.0 (3.4-5.1) mmol/L Chloride 101 (98-107) mmol/L Carbon Dioxide 24 (22-32) mmol/L BUN 10 (9-20) mg/dL Creatinine 0.70 (0.66-1.25) mg/dL Estimated GFR > 60 (>60) mL/min BUN/Creatinine Ratio 14.3 (6-22) Glucose 148 H (80-110) mg/dL Lactate 1.2 (0.7-2.1) mmol/L Calcium 9.7 (8.4-10.2) mg/dL Magnesium 1.7 (1.6-2.3) mg/dL Total Bilirubin 1.5 H (0.2-1.3) mg/dL AST 41 (17-59) IU/L ALT 24 (<50) IU/L Alkaline Phosphatase 172 H (38-126) U/L Total Creatine Kinase 81 (55-170) U/L Troponin I < 0.012 (0.01-0.034) ng/mL Total Protein 7.9 (6.3-8.2) g/dL Albumin 4.7 (3.5-5.0) g/dL Globulin 3.2 (1.7-4.1) g/dL Albumin/Globulin Ratio 1.5 (1.0-2.8) Lipase 68 (23-300) U/L Urine Color Yellow Urine Appearance Cloudy Urine pH 7.5 (4.5-8.0) Ur Specific [place] 1.015 (1.000-1.035) Urine Protein 1+ H (Negative) Urine Glucose (UA) Negative (Negative) g/dL Urine Ketones 3+ H (NEGATIVE) Urine Occult Blood Trace-intact (Negative) Urine Nitrate Negative (Negative) Urine Bilirubin Negative (NEGATIVE) Urine Urobilinogen 0.2 (0.2) E.U./dL Ur Leukocyte Esterase Negative (NEGATIVE) Urine RBC 0-1/hpf (0-5/HPF) Urine WBC None seen (0-5/HPF) Ur Squamous Epith Cells 0-1 /hpf (0-5/HPF) Amorphous Sediment 4+ Urine Bacteria None seen (None) Ur Culture Indicated? Cult not indicated Vol Urine Centrifuged 10ml (spun) Imaging Data Chest x-ray: Radiologist's Impression: [address] [address] XRay Report Signed Patient: Marky Peters MR#: [id number] : 1950 Acct:[id number] Age/Sex: 74 / M Date of Service: 12/26/24 Loc: ED Accession Number: [id number] Procedure: XR chest 1V Ordering Provider: Antione Collazo D.O. PROCEDURE: XR CHEST 1V INDICATIONS: epigastric pain TECHNIQUE: One view of the chest was acquired. COMPARISON: None. FINDINGS: Surgical changes and devices: None. Lungs and pleura: Lungs are clear. No pleural effusions or pneumothorax. Mediastinum: Mediastinal contours appear normal. Heart size is normal. Bones and chest wall: No suspicious bony lesions. Overlying soft tissues appear unremarkable. IMPRESSION: No acute cardiopulmonary abnormality is seen. CT scan - abdomen/pelvis: Radiologist's Impression: [address] [address] [address] Scan Report Signed Patient: Marky Peters MR#: [id number] : 1950 Acct:[id number] Age/Sex: 74 / M Date of Service: 12/26/24 Loc: ED Accession Number: [id number] Procedure: CT abdomen pelvis w con Ordering Provider: Antione Collazo D.O. PROCEDURE: CT ABDOMEN PELVIS W CON INDICATIONS: epigastric pain TECHNIQUE: After the administration of intravenous contrast, axial sections acquired from the lung bases to the pubic symphysis. Coronal and sagittal reformats were performed. For radiation dose reduction, the following was used: automated exposure control, adjustment of mA and/or kV according to patient size. COMPARISON: None. FINDINGS: Image quality: Diagnostic. Lower Chest: No significant findings. ABDOMEN: Liver: No solid mass. Gallbladder: Distended with possible gallbladder wall thickening. Layering calcifications, likely representing stones. Pericholecystic fluid. Biliary ducts: No biliary dilation. Pancreas: No ductal dilation. Spleen: Size is within normal limits. Adrenal Glands: No adrenal nodules. Kidneys and Ureters: No hydronephrosis. No solid mass. No complex renal cystic lesion which requires follow up. Stomach and Bowel: Normal colonic caliber, without significant wall thickening. Diverticulosis without evidence of acute diverticulitis. Normal appendix. Prominent stool burden in the right colon. Peritoneum: No abnormal intraperitoneal fluid. No free air. Ventral Wall: No significant ventral hernia. Abdominal Nodes: No retroperitoneal or mesenteric adenopathy by size criteria. Vessels: Aorta and inferior vena cava are normal in size. Atherosclerotic vascular calcifications. PELVIS: Pelvic Organs: Prostatomegaly. Bladder: No bladder wall thickening, accounting for underdistention. Pelvic Nodes: No enlarged lymph nodes. Miscellaneous: No inguinal hernias are seen. Calcification in the posterior pelvis just to the right of midline measuring 3 cm (2/104). Bones: No aggressive osseous abnormality. Degenerative changes of the spine. IMPRESSION: 1. Gallbladder is distended with possible wall thickening. Layering gallstones are seen as well as pericholecystic fluid. Findings concerning for acute cholecystitis. 2. Diverticulosis without evidence of acute diverticulitis. 3. Calcification in the posterior pelvis measuring 3 cm of uncertain etiology. 4. Please see above for additional findings. ECG Data Interpretation: EKG interpreted ED physician sinus bradycardia 52 beats per minute QTC [address] changes no STEMI MDM Narrative Medical decision making narrative: 72-year-old male with a history of hypertension hyperlipidemia presents for epigastric pain right upper quadrant abdominal pain started abruptly earlier today. States that he does have a known history of gallbladder and elevated bilirubin but has not had any issues with this recently. He states that he had severe pain earlier but otherwise has been waxing and waning nothing making it better or worse. Patient without any leukocytosis did have noted elevated bilirubin of 1.5, CT scan showing distended gallbladder with wall thickening pericholecystic fluid consistent with acute cholecystitis. We will give a dose of IV Zosyn, had a discussion with general surgery states patient to remain NPO admit to medicine and will schedule patient to have gallbladder removal in the next 24 hours. Patient with troponin negative EKG nonischemic 2.24.25 @ 0015: Case discussed with general surgeon Dr. Malone, states patient to be admitted remain NPO agrees with prophylactic treatment of IV Zosyn, states admit to Medicine we will plan for cholecystectomy in the next 24 hours, this was updated to the patient and family they understand agree with this plan call placed out to hospitalist for admission The patient's management plan was discussed Dr. Maher, who agrees to admit the patient to their service and assumes care of this patient at this time. Full admission orders will be placed by the primary team. Discharge Plan Departure Patient Disposition: Admitted As Inpatient Clinical Impression: Acute cholecystitis
--- NOTE | 2024-12-26 23:26 | DI.CT.S_ITS ---
PROCEDURE: CT ABDOMEN PELVIS W CON INDICATIONS: epigastric pain TECHNIQUE: After the administration of intravenous contrast, axial sections acquired from the lung bases to the pubic symphysis. Coronal and sagittal reformats were performed. For radiation dose reduction, the following was used: automated exposure control, adjustment of mA and/or kV according to patient size. COMPARISON: None. FINDINGS: Image quality: Diagnostic. Lower Chest: No significant findings. ABDOMEN: Liver: No solid mass. Gallbladder: Distended with possible gallbladder wall thickening. Layering calcifications, likely representing stones. Pericholecystic fluid. Biliary ducts: No biliary dilation. Pancreas: No ductal dilation. Spleen: Size is within normal limits. Adrenal Glands: No adrenal nodules. Kidneys and Ureters: No hydronephrosis. No solid mass. No complex renal cystic lesion which requires follow up. Stomach and Bowel: Normal colonic caliber, without significant wall thickening. Diverticulosis without evidence of acute diverticulitis. Normal appendix. Prominent stool burden in the right colon. Peritoneum: No abnormal intraperitoneal fluid. No free air. Ventral Wall: No significant ventral hernia. Abdominal Nodes: No retroperitoneal or mesenteric adenopathy by size criteria. Vessels: Aorta and inferior vena cava are normal in size. Atherosclerotic vascular calcifications. PELVIS: Pelvic Organs: Prostatomegaly. Bladder: No bladder wall thickening, accounting for underdistention. Pelvic Nodes: No enlarged lymph nodes. Miscellaneous: No inguinal hernias are seen. Calcification in the posterior pelvis just to the right of midline measuring 3 cm (2/104). Bones: No aggressive osseous abnormality. Degenerative changes of the spine. IMPRESSION: 1. Gallbladder is distended with possible wall thickening. Layering gallstones are seen as well as pericholecystic fluid. Findings concerning for acute cholecystitis. 2. Diverticulosis without evidence of acute diverticulitis. 3. Calcification in the posterior pelvis measuring 3 cm of uncertain etiology. 4. Please see above for additional findings. Dictated by: Padilla Holm M.D. on 12/27/2024 at 0:05 Approved by: Padilla Holm M.D. on 12/27/2024 at 0:11
[2024-12-26 23:30] VITALS: BP 203/94; PULSE 66; O2SAT 98
--- NOTE | 2024-12-26 23:33 | DI.RAD.S_ITS ---
PROCEDURE: XR CHEST 1V INDICATIONS: epigastric pain TECHNIQUE: One view of the chest was acquired. COMPARISON: None. FINDINGS: Surgical changes and devices: None. Lungs and pleura: Lungs are clear. No pleural effusions or pneumothorax. Mediastinum: Mediastinal contours appear normal. Heart size is normal. Bones and chest wall: No suspicious bony lesions. Overlying soft tissues appear unremarkable. IMPRESSION: No acute cardiopulmonary abnormality is seen. Dictated by: Padilla Holm M.D. on 12/27/2024 at 0:25 Approved by: Padilla Holm M.D. on 12/27/2024 at 0:25
[2024-12-26] MEDS: MORPHINE 4 MG/ML INJ IV (23:50)
[2024-12-26 23:52] VITALS: BP 214/94; PULSE 66; RESP 16; O2SAT 99
[2024-12-26 23:55] LABS: Creatine Kinase 81 U/L (55-170)
[2024-12-26 23:56] LABS: Lactate (Lactic Acid) 1.2 mmol/L (0.7-2.1); Magnesium 1.7 mg/dL (1.6-2.3)
[2024-12-27] VITALS (14 sets, daily range): BP systolic 153–194; BP diastolic 76–112; PULSE 64–82; RESP 12–34; TEMP 35.8–37.4; O2SAT 92–98; BMI 22.4
[2024-12-27 00:08] LABS: Troponin I < 0.012 ng/mL (0.01-0.034)
[2024-12-27 00:10] LABS: Appearance Urine UA CLOUDY; Bilirubin Urine UA NEGATIVE (NEGATIVE); Color Urine UA YELLOW; Glucose Urine UA NEGATIVE (Negative); Ketones Urine UA 3+ (NEGATIVE); Leukocyte Esterase Urine UA NEGATIVE (NEGATIVE); Nitrite Urine UA NEGATIVE (Negative); Occult Blood Urine UA TRACE-INTACT (Negative); Protein Urine UA 1+ (Negative); Specific Gravity Urine UA 1.015 (1.000-1.035); Urobilinogen Urine UA 0.2 E.U./dL (0.2); pH Urine UA 7.5 (4.5-8.0)
[2024-12-27 00:19] LABS: Amorphous Sediment Urine 4+; Bacteria Urine None Seen; Culture Indicated Urine Cult Not Indicated; RBC Urine 0-1/HPF (0-5/HPF); Squamous Epithelial Cell Urine 0-1 /HPF (0-5/HPF); Urine Volume 10mL (spun); WBC Urine None Seen (0-5/HPF)
[2024-12-27] MEDS: PIPERACILLIN/TAZO 4.5 GM in SODIUM CHLORIDE 0.9% 100 ML IV (00:27)
[2024-12-27] MEDS: SODIUM CHLORIDE 0.9% 1,000 ML 100 ML IV (04:08)
--- NOTE | 2024-12-27 05:55 | PM.HP.1 ---
History of Present Illness History of Present Illness Date Patient Seen: 12/27/24 Date of Onset of Symptoms: 12/26/24 Chief complaint: abd pain, vomiting Narrative: 74 y/o Male with h/o HTN, and OA of knee, presented to ED, with sudden onset of RUQ pain, of moderate intensity, 6-7 /10, started around 2 pm on day of ED visit ( 12/26) after pt has had his lunch. He noted pain radiating to epigastric are. No rad to the back or lower abdomen. He had nausea and had several bouts of bilious vomiting, non bloody , no coffee grounds. No Diarrhea. Was also have chills and hot and cold sweats. Denies fever. No CP, SOB, Lioght Headedness or Syncope. No Dysuria. He denies prior h/o gall stones or bile stones, or gb problems. He went to the local fire dept , as his RUQ pain was worsening. He was advised to go to ED. ED labs/ imaging, meds given reviewed. As his CTAP indicated Gall stones with possibility of gb inflammation, as well as Moderate Leukocytosis , and RUQ/ Epigastric pain, Gen Surgery, Dr Malone was consulted per ED. Dr Malone agreed with admitting pt to the medicine service, as well as IV abx / Zosyn, and advised pt to be NPO , in anticipation of gb surgery. He would see pt in the morning. [facility] Medical History (Updated 12/27/24 @ 06:24 by Abigail Maher MD) Uncontrolled hypertension Acute cholecystitis Hearing loss (~2014) Cardiac arrhythmia History of kidney stones Family history of prostate cancer No significant medical problems Family History Father Stroke Mother Cancer Grandfather History of heart disease Grandfather History of heart disease Social History household members: spouse Smoking Status: Never smoker alcohol intake: current Meds Home Medications and Allergies Home Medications Medication Instructions Recorded Confirmed Type aspirin 81 mg chewable tablet 81 mg PO QDAY ##0 06/26/16 12/27/24 History amlodipine 5 mg tablet 5 mg PO DAILY #90 tabs 12/23/24 12/27/24 Rx losartan 100 1 tab PO DAILY #90 tabs 12/23/24 12/27/24 Rx mg-hydrochlorothiazide 25 mg tablet Allergies Allergy/AdvReac Type Severity Reaction Status Date / Time No Known Drug Allergies Allergy Verified 12/26/24 18:14 Review of Systems Review of Systems ROS: Yes All systems reviewed with the patient and are negative except as otherwise documented Exam Vital Signs (past 8 hours): - 12/26/24 23:14 12/26/24 23:15 12/26/24 23:15 Temperature Pulse Rate 62 61 Respiratory Rate 19 Blood Pressure 217/102 H Pulse Oximetry 98 99 Oxygen Delivery Method Oxygen Flow Rate 12/26/24 23:30 12/26/24 23:30 12/26/24 23:52 Temperature Pulse Rate 66 Respiratory Rate Blood Pressure 203/94 H 214/94 H Pulse Oximetry 98 Oxygen Delivery Method Oxygen Flow Rate 12/26/24 23:52 12/27/24 00:00 12/27/24 00:01 Temperature Pulse Rate 66 69 Respiratory Rate 16 19 Blood Pressure 194/102 H Pulse Oximetry 99 97 Oxygen Delivery Method Oxygen Flow Rate 12/27/24 00:01 12/27/24 00:30 12/27/24 00:30 Temperature Pulse Rate 70 74 Respiratory Rate Blood Pressure 192/112 H Pulse Oximetry 97 98 Oxygen Delivery Method Oxygen Flow Rate 12/27/24 01:00 12/27/24 01:00 12/27/24 01:30 Temperature Pulse Rate 71 70 Respiratory Rate 18 32 H Blood Pressure 171/91 H Pulse Oximetry 95 92 Oxygen Delivery Method Oxygen Flow Rate 12/27/24 01:30 12/27/24 02:00 12/27/24 02:00 Temperature Pulse Rate 67 Respiratory Rate 34 H Blood Pressure 177/92 H 171/93 H Pulse Oximetry 96 Oxygen Delivery Method Oxygen Flow Rate 12/27/24 02:30 12/27/24 02:30 12/27/24 03:00 Temperature Pulse Rate 71 82 Respiratory Rate 29 H 20 Blood Pressure 171/90 H Pulse Oximetry 96 95 Oxygen Delivery Method Oxygen Flow Rate 12/27/24 03:00 12/27/24 03:30 12/27/24 03:30 Temperature Pulse Rate 76 Respiratory Rate 24 Blood Pressure 159/76 H 172/89 H Pulse Oximetry 95 Oxygen Delivery Method Room Air Oxygen Flow Rate 12/27/24 04:00 Temperature 98.5 F Pulse Rate 73 Respiratory Rate 16 Blood Pressure 168/91 H Pulse Oximetry 96 Oxygen Delivery Method Oxygen Flow Rate 0 Oxygen Delivery Method Room Air Oxygen Flow Rate 0 Narrative Exam Narrative: A and O x 3, cooperative, his RUQ pain is improving after having recd Morphine IV in ED HENMT Head: normal to inspection, normocephalic and atraumatic Nose: external nose normal and nares normal Mouth: oral mucosae normal and moist mucous membranes Throat: posterior oropharynx normal Eyes Conjunctivae: conjunctivae normal Sclera: sclerae normal Pupils: PERRL EOM: EOM intact bilaterally Neck Neck: full ROM and other (Supple, no TMG) Chest Breast inspection: Other (No LE edema pp 2+ bilat symmetric) Resp Effort & Inspection: normal respiratory effort and able to speak in complete sentences Auscultation: clear to auscultation bilaterally Cardio Rate: regular rate Heart Sounds: S1 normal, S2 normal and other (No M/ G/ R) Pulses: other Other: pp 2+ bilat symmetric GI Inspection: normal to inspection Palpation: soft and other Auscultation: normal bowel sounds Skin General: no rashes or lesions noted and other (warm, no cyanosis ) Neuro General: patient alert, patient awake, patient oriented x3 and other (no gross motor or sensory deficits noted) Cognition: normal cognition Psych Appearance: grossly normal and well kempt Mental Status: mental status grossly normal Objective Labs 12/26/24 18:29 12/26/24 18:29 Labs: Laboratory Results - last 24 hr 12/26/24 12/26/24 12/26/24 18:29 23:35 23:55 WBC 10.9 RBC 4.70 Hgb 14.9 Hct 43.1 MCV 91.7 MCH 31.7 MCHC 34.6 RDW 13.7 Plt Count 232 Neut % (Auto) 85.8 H Lymph % (Auto) 9.9 L [place] % (Auto) 3.7 Eos % (Auto) 0.2 L Baso % (Auto) 0.4 Neut # (Auto) 9400 H Lymph # (Auto) 1100 [place] # (Auto) 400 Eos # (Auto) 0 Baso # (Auto) 0 Sodium 137 Potassium 4.0 Chloride 101 Carbon Dioxide 24 BUN 10 Creatinine 0.70 Estimated GFR > 60 BUN/Creatinine Ratio 14.3 Glucose 148 H Lactate 1.2 Calcium 9.7 Magnesium 1.7 Total Bilirubin 1.5 H AST 41 ALT 24 Alkaline Phosphatase 172 H Total Creatine Kinase 81 Troponin I < 0.012 Total Protein 7.9 Albumin 4.7 Globulin 3.2 Albumin/Globulin Ratio 1.5 Lipase 68 Urine Color Yellow Urine Appearance Cloudy Urine pH 7.5 Ur Specific [place] 1.015 Urine Protein 1+ H Urine Glucose (UA) Negative Urine Ketones 3+ H Urine Occult Blood Trace-intact Urine Nitrate Negative Urine Bilirubin Negative Urine Urobilinogen 0.2 Ur Leukocyte Esterase Negative Urine RBC 0-1/hpf Urine WBC None seen Ur Squamous Epith Cells 0-1 /hpf Amorphous Sediment 4+ Urine Bacteria None seen Ur Culture Indicated? Cult not indicated Vol Urine Centrifuged 10ml (spun) Assessment & Plan Assessment and plan (1) Acute cholecystitis: Problem details: Gall Stone associated Acute Cholecystitis. BL cx done, IVF and IV abx / Zosyn started in ED, and shall continue during admission Ant emetic prn Judicious pain control : Morphine 2-4 mg IV prn Monitor Electrolytes and replaces prn Status: Acute (2) Elevated liver function tests: Problem details: slight TB elevation and and Alk Phosp elevated sec to Acute cholecystitis Monitor Hepaticv function Status: Acute (3) Uncontrolled hypertension: Problem details: h/o HTN, BPs elevated in response to moderate RUQ pain. Cardiac monitoring. Status: Acute Time-Based Coding :: [TOTAL MINUTES] spent with patient and on the chart (including review of chart, obtaining history, exam, reviewing outside data, placing orders, documenting exam and treatment plan, and counseling patient) on [DATE].
[2024-12-27] MEDS: PIPERACILLIN/TAZO 3.375 GM in SODIUM CHLORIDE 0.9% 100 ML IV ×3 (06:23→21:28)
--- NOTE | 2024-12-27 07:50 | P.HP_ITS ---
History of Present Illness History of Present Illness Date Patient Seen: 12/27/24 Chief complaint: abd pain, vomiting Narrative: From night doctor: 74 y/o Male with h/o HTN, and OA of knee, presented to ED, with sudden onset of RUQ pain, of moderate intensity, 6-7 /10, started around 2 pm on day of ED visit ( 12/26) after pt has had his lunch. He noted pain radiating to epigastric are. No rad to the back or lower abdomen. He had nausea and had several bouts of bilious vomiting, non bloody , no coffee grounds. No Diarrhea. Was also have chills and hot and cold sweats. Denies fever. No CP, SOB, Lioght Headedness or Syncope. No Dysuria. He denies prior h/o gall stones or bile stones, or gb problems. He went to the local fire dept , as his RUQ pain was worsening. He was advised to go to ED. ED labs/ imaging, meds given reviewed. As his CTAP indicated Gall stones with possibility of gb inflammation, as well as Moderate Leukocytosis , and RUQ/ Epigastric pain, Gen Surgery, Dr Malone was consulted per ED. Dr Malone agreed with admitting pt to the medicine service, as well as IV abx / Zosyn, and advised pt to be NPO , in anticipation of gb surgery. He would see pt in the morning. Surgery saw him this morning and he will undergo laparoscopic cholecystectomy this afternoon.. S: He was pain is well-controlled. His vomiting has resolved. No fevers. [facility] Medical History Uncontrolled hypertension Acute cholecystitis Hearing loss (~2014) Cardiac arrhythmia History of kidney stones Family history of prostate cancer No significant medical problems Family History Father Stroke Mother Cancer Grandfather History of heart disease Grandfather History of heart disease Social History household members: spouse Smoking Status: Never smoker alcohol intake: current Meds Home Medications and Allergies Home Medications Medication Instructions Recorded Confirmed Type aspirin 81 mg chewable tablet 81 mg PO QDAY ##0 06/26/16 12/27/24 History amlodipine 5 mg tablet 5 mg PO DAILY #90 tabs 12/23/24 12/27/24 Rx losartan 100 1 tab PO DAILY #90 tabs 12/23/24 12/27/24 Rx mg-hydrochlorothiazide 25 mg tablet Allergies Allergy/AdvReac Type Severity Reaction Status Date / Time No Known Drug Allergies Allergy Verified 12/26/24 18:14 Review of Systems Review of Systems Narrative: All else reviewed and otherwise unremarkable except as noted in the history and physical. Exam Vital Signs (past 8 hours): - 12/26/24 23:52 12/26/24 23:52 12/27/24 00:00 Temperature Pulse Rate 66 69 Respiratory Rate 16 19 Blood Pressure 214/94 H Pulse Oximetry 99 97 Oxygen Delivery Method Oxygen Flow Rate 12/27/24 00:01 12/27/24 00:01 12/27/24 00:30 Temperature Pulse Rate 70 74 Respiratory Rate Blood Pressure 194/102 H Pulse Oximetry 97 98 Oxygen Delivery Method Oxygen Flow Rate 12/27/24 00:30 12/27/24 01:00 12/27/24 01:00 Temperature Pulse Rate 71 Respiratory Rate 18 Blood Pressure 192/112 H 171/91 H Pulse Oximetry 95 Oxygen Delivery Method Oxygen Flow Rate 12/27/24 01:30 12/27/24 01:30 12/27/24 02:00 Temperature Pulse Rate 70 Respiratory Rate 32 H Blood Pressure 177/92 H 171/93 H Pulse Oximetry 92 Oxygen Delivery Method Oxygen Flow Rate 12/27/24 02:00 12/27/24 02:30 12/27/24 02:30 Temperature Pulse Rate 67 71 Respiratory Rate 34 H 29 H Blood Pressure 171/90 H Pulse Oximetry 96 96 Oxygen Delivery Method Oxygen Flow Rate 12/27/24 03:00 12/27/24 03:00 12/27/24 03:30 Temperature Pulse Rate 82 76 Respiratory Rate 20 24 Blood Pressure 159/76 H Pulse Oximetry 95 95 Oxygen Delivery Method Room Air Oxygen Flow Rate 12/27/24 03:30 12/27/24 04:00 Temperature 98.5 F Pulse Rate 73 Respiratory Rate 16 Blood Pressure 172/89 H 168/91 H Pulse Oximetry 96 Oxygen Delivery Method Oxygen Flow Rate 0 Oxygen Delivery Method Room Air Oxygen Flow Rate 0 Narrative Exam Narrative: NAD, alert and oriented, fluent speech, calm. Normocephalic skull, EOMI, anicteric sclera, symmetric pupils. Oropharynx unremarkable, no droop. Neck supple, midline trachea, no adenopathy. Lungs clear, normal rate and effort. Heart regular, no murmur gallop or rub. Abdomen is soft, non distended and non tender. RUQ is tender. Extremities are free of edema. Skin is free of rash or lesions. Joints are not swollen or deformed. Judgment appears to be normal. Objective Imaging CT scan - abdomen: Radiologist's impression: 1. Gallbladder is distended with possible wall thickening. Layering gallstones are seen as well as pericholecystic fluid. Findings concerning for acute cholecystitis. 2. Diverticulosis without evidence of acute diverticulitis. 3. Calcification in the posterior pelvis measuring 3 cm of uncertain etiology. 4. Please see above for additional findings. Labs 12/26/24 18:29 12/26/24 18:29 Labs: Laboratory Results - last 24 hr 12/26/24 12/26/24 12/26/24 18:29 23:35 23:55 WBC 10.9 RBC 4.70 Hgb 14.9 Hct 43.1 MCV 91.7 MCH 31.7 MCHC 34.6 RDW 13.7 Plt Count 232 Neut % (Auto) 85.8 H Lymph % (Auto) 9.9 L [place] % (Auto) 3.7 Eos % (Auto) 0.2 L Baso % (Auto) 0.4 Neut # (Auto) 9400 H Lymph # (Auto) 1100 [place] # (Auto) 400 Eos # (Auto) 0 Baso # (Auto) 0 Sodium 137 Potassium 4.0 Chloride 101 Carbon Dioxide 24 BUN 10 Creatinine 0.70 Estimated GFR > 60 BUN/Creatinine Ratio 14.3 Glucose 148 H Lactate 1.2 Calcium 9.7 Magnesium 1.7 Total Bilirubin 1.5 H AST 41 ALT 24 Alkaline Phosphatase 172 H Total Creatine Kinase 81 Troponin I < 0.012 Total Protein 7.9 Albumin 4.7 Globulin 3.2 Albumin/Globulin Ratio 1.5 Lipase 68 Urine Color Yellow Urine Appearance Cloudy Urine pH 7.5 Ur Specific [place] 1.015 Urine Protein 1+ H Urine Glucose (UA) Negative Urine Ketones 3+ H Urine Occult Blood Trace-intact Urine Nitrate Negative Urine Bilirubin Negative Urine Urobilinogen 0.2 Ur Leukocyte Esterase Negative Urine RBC 0-1/hpf Urine WBC None seen Ur Squamous Epith Cells 0-1 /hpf Amorphous Sediment 4+ Urine Bacteria None seen Ur Culture Indicated? Cult not indicated Vol Urine Centrifuged 10ml (spun) Assessment & Plan Assessment & Plan narrative: (1) Acute cholecystitis: IVF and IV abx / Zosyn started in ED, and shall continue during admission Judicious pain control : Morphine 2-4 mg IV prn (2) Elevated liver function tests: slight TB elevation and and Alk Phosp elevated sec to Acute cholecystitis (3) Uncontrolled hypertension: h/o HTN, BPs elevated in response to moderate RUQ pain. Cardiac monitoring. PLAN: -laparoscopic cholecystectomy today. -start blood pressure medications postoperatively. WERO is 12/28. He was full code. He was , lives on [facility] with his . Time-Based Coding :: 35 min spent with patient and on the chart (including review of chart, obtaining history, exam, reviewing outside data, placing orders, documenting exam and treatment plan, and counseling patient) on 12/27. Quality MIPS - Admit I confirm the patient?s Advance Care Plan is present, Code status is documented, Surrogate decision maker is in patient?s record [If Yes, STOP here]: Yes MIPS - Meds 'Current medications' to include all prescriptions, [id number] products, herbals, cannabis/cannabidiol products, and vitamin/mineral/dietary (nutritional) supplements. I have utilized all available resources to obtain, update, or review the patient?s current medications. [If Yes, STOP here]: Yes
[2024-12-27] MEDS: HYDROMORPHONE 0.5 MG INJ IV (08:48)
--- NOTE | 2024-12-27 08:57 | P.CONS_ITS ---
History of Present Illness Consult details Date Patient Seen: 12/27/24 Time Patient Seen: 08:57 Chief complaint: abd pain, vomiting Narrative: Marky is a 74-year-old man who presents with 1 day of right upper quadrant abdominal pain. He has never had similar pain in the past. He has had kidney stones in the past. He came to the emergency department last night and a CT scan showed a distended gallbladder and gallstones consistent with acute cholecystitis. He has mild elevations of his total bilirubin. Pain has improved since admission. Prior surgeries include laparoscopic right inguinal hernia repair. He was scheduled to have an orthopedic surgery for his knee in 2 weeks. Meds Home Medications and Allergies Home Medications Medication Instructions Recorded Confirmed Type aspirin 81 mg chewable tablet 81 mg PO QDAY ##0 06/26/16 12/27/24 History amlodipine 5 mg tablet 5 mg PO DAILY #90 tabs 12/23/24 12/27/24 Rx losartan 100 1 tab PO DAILY #90 tabs 12/23/24 12/27/24 Rx mg-hydrochlorothiazide 25 mg tablet Allergies Allergy/AdvReac Type Severity Reaction Status Date / Time No Known Drug Allergies Allergy Verified 12/26/24 18:14 Exam Vital Signs (past 8 hours): - 12/27/24 01:00 12/27/24 01:00 12/27/24 01:30 Temperature Pulse Rate 71 70 Respiratory Rate 18 32 H Blood Pressure 171/91 H Pulse Oximetry 95 92 Oxygen Delivery Method Oxygen Flow Rate 12/27/24 01:30 12/27/24 02:00 12/27/24 02:00 Temperature Pulse Rate 67 Respiratory Rate 34 H Blood Pressure 177/92 H 171/93 H Pulse Oximetry 96 Oxygen Delivery Method Oxygen Flow Rate 12/27/24 02:30 12/27/24 02:30 12/27/24 03:00 Temperature Pulse Rate 71 82 Respiratory Rate 29 H 20 Blood Pressure 171/90 H Pulse Oximetry 96 95 Oxygen Delivery Method Oxygen Flow Rate 12/27/24 03:00 12/27/24 03:30 12/27/24 03:30 Temperature Pulse Rate 76 Respiratory Rate 24 Blood Pressure 159/76 H 172/89 H Pulse Oximetry 95 Oxygen Delivery Method Room Air Oxygen Flow Rate 12/27/24 04:00 Temperature 98.5 F Pulse Rate 73 Respiratory Rate 16 Blood Pressure 168/91 H Pulse Oximetry 96 Oxygen Delivery Method Oxygen Flow Rate 0 Oxygen Delivery Method Room Air Oxygen Flow Rate 0 Narrative Exam Narrative: Right upper quadrant is tender to palpation and there is a palpable gallbladder in the right upper quadrant Objective Labs 12/26/24 18:29 12/26/24 18:29 Labs: Laboratory Results - last 24 hr 12/26/24 12/26/24 12/26/24 18:29 23:35 23:55 WBC 10.9 RBC 4.70 Hgb 14.9 Hct 43.1 MCV 91.7 MCH 31.7 MCHC 34.6 RDW 13.7 Plt Count 232 Neut % (Auto) 85.8 H Lymph % (Auto) 9.9 L [place] % (Auto) 3.7 Eos % (Auto) 0.2 L Baso % (Auto) 0.4 Neut # (Auto) 9400 H Lymph # (Auto) 1100 [place] # (Auto) 400 Eos # (Auto) 0 Baso # (Auto) 0 Sodium 137 Potassium 4.0 Chloride 101 Carbon Dioxide 24 BUN 10 Creatinine 0.70 Estimated GFR > 60 BUN/Creatinine Ratio 14.3 Glucose 148 H Lactate 1.2 Calcium 9.7 Magnesium 1.7 Total Bilirubin 1.5 H AST 41 ALT 24 Alkaline Phosphatase 172 H Total Creatine Kinase 81 Troponin I < 0.012 Total Protein 7.9 Albumin 4.7 Globulin 3.2 Albumin/Globulin Ratio 1.5 Lipase 68 Urine Color Yellow Urine Appearance Cloudy Urine pH 7.5 Ur Specific [place] 1.015 Urine Protein 1+ H Urine Glucose (UA) Negative Urine Ketones 3+ H Urine Occult Blood Trace-intact Urine Nitrate Negative Urine Bilirubin Negative Urine Urobilinogen 0.2 Ur Leukocyte Esterase Negative Urine RBC 0-1/hpf Urine WBC None seen Ur Squamous Epith Cells 0-1 /hpf Amorphous Sediment 4+ Urine Bacteria None seen Ur Culture Indicated? Cult not indicated Vol Urine Centrifuged 10ml (spun) [facility] Medical History Uncontrolled hypertension Acute cholecystitis Hearing loss (~2014) Cardiac arrhythmia History of kidney stones Family history of prostate cancer No significant medical problems Family History Father Stroke Mother Cancer Grandfather History of heart disease Grandfather History of heart disease Social History household members: spouse Tobacco & Substance Use Smoking Status: Never smoker alcohol intake: current Assessment & Plan Assessment and plan (1) Acute cholecystitis: Problem details: Gall Stone associated Acute Cholecystitis. BL cx done, IVF and IV abx / Zosyn started in ED, and shall continue during admission Ant emetic prn Judicious pain control : Morphine 2-4 mg IV prn Monitor Electrolytes and replaces prn Status: Acute Plan Laparoscopic cholecystectomy with intraoperative cholangiogram this afternoon. Expect discharge tomorrow. I do not anticipate any problems with him keeping his orthopedic surgery plans for 2 weeks from now. Time-Based Coding :: [TOTAL MINUTES] spent with patient and on the chart (including review of chart, obtaining history, exam, reviewing outside data, placing orders, documenting exam and treatment plan, and counseling patient) on [DATE]. PROFEE Charge Codes Inpatient or Observation consultation: 72410
--- NOTE | 2024-12-27 11:12 | PC.NURSE ---
Addendum entered by Archana Mae R.N. 12/27/24 13:53: Patient had a shower with hibaclens, his surgery has gotten cancelled for today and it will be tomorrow. Original Note: Patient given dilaudid iv x1, he is comfortable and ivf are infusing. HE has been npo since 0000. He is suppose to go to surgery around 1500 and he is going to take a shower with hibaclens.
[2024-12-27] MEDS: SODIUM CHLORIDE 0.9% 1,000 ML 125 ML IV ×2 (12:30→20:06)
--- NOTE | 2024-12-27 15:50 | CM.DANOTE ---
Patient is a 74 yo male who was admitted OBS Status on 12/27/24 for Abd Pain. Pt has MCR and COMM for insurance and his PCP is Pelon Britton at the [facility]. EMR was reviewed. Per MD, pt with hx of kidney stones and abd pains and Surgeon to consult. Pt scheduled for Ortho knee surgery in two weeks. Per Surgeon, pt with acute Cholecystitis and plan of Lap Kathleen and Surgeon does not anticipate any discharge needs. Per RN, pt's surgery cancelled for this afternoon due to emergent surgical needs of other patients and plan is surgery tomorrow Tu12/28. Patient resides on [facility] with his Sig Other and is independent at baseline and continues to work some. Pt's Sig Other supportive and available at discharge. No bedside assessment completed at this time due to triage needs and no identified barriers to discharge at this time. Plan: SW to follow closely for plan of surgical intervention tomorrow for gallbladder removal and any further identified discharge planning needs. SW to r/o possible need for [place] Boarding [place] ferry back to [place] at d/c. MARTINEZ Dawn Discharge Planning/Care Management CM Discharge Assessment Start: 12/27/24 15:48 Freq: Status: Active Protocol: Document 12/27/24 15:48 BF (Rec: 12/27/24 15:50 BF [id number]) Discharge Planning Assessment Assigned Jockey'S Agent MARTINEZ Glass DPOA/Assigned Designee Name Robby Gallegos Rambo Adry Contact Information [phone] Advance Directives? Yes Advance Directives on File No History Provided By Patient,Medical Record Has Patient been admitted in last 30 No days? Prior Living Arrangements House Household Members spouse Type of transporation used prior to Drives own vehicle admit Independent with ADL's Yes Is patient alert and oriented? Yes Caregiver for Another No DME Already Rented / Owned Cane Barriers to Discharge No Discharge Plan Home Transportation Arrangement Likely Sig Other Referrals Initiated None needed Additional Comment Pending progress post surg Whiteboard Updated in Patient Room with Yes name and ext. # of Jockey'S Agent Review Status In Process Please Provide Date Initial DC 12/27/24 Assessment Was Performed Next Review Type Continued Stay Review
[2024-12-27] MEDS: ACETAMINOPHEN 325 MG TABLET 650 MG PO (18:40)
[2024-12-27] MEDS: OXYCODONE IR 5 MG TABLET PO (18:41)
[2024-12-27] MEDS: IBUPROFEN 400 MG TABLET 200 MG PO (21:52)
[2024-12-28] VITALS (17 sets, daily range): BP systolic 125–178; BP diastolic 71–105; PULSE 58–76; RESP 11–20; TEMP 36.2–37.4; O2SAT 91–98; BMI 22.4
--- NOTE | 2024-12-28 | PATH_ITS ---
[facility] Accession Number: [id number] No. of containers..01 Tissue . 01 Material submitted: . gallbladder - GALLBLADDER . 01 Diagnosis: GALLBLADDER, CHOLECYSTECTOMY: Mixed acute and chronic calculous cholecystitis with mucosal erosions and reactive/regenerative changes. Negative for dysplasia and malignancy. [facility] 12/30/2024 1513 Local . 01 Electronically signed: . Tara Hampton MD, Pathologist NPI- [id number] . 01 Gross description: . Received in formalin with two patient identifiers and gallbladder, is an intact gallbladder, 9.5 x 4.6 x 2.8 cm, with a partially smooth hassan and brown external surface. The cystic duct margin is inked blue and no pericystic lymph node is identified. The lumen contains multiple black to dark brown faceted to roughened calculi admixed with green viscous bile. The mucosa is green to brown and velvety without pinpoint yellow discoloration or lesions. The dee average 0.5 cm thick. [place] Knitter sections to include the cystic duct margin and full thickness sections are submitted in A1. ([id number]) /MRV 12/29/2024 1907 Local . 01 Pathologist provided ICD-10: K80.10 . 01 CPT . 834406 Specimen Comment: A courtesy copy of this report has been sent to [phone] Performed at: [address] [address], [place], [place] [id number] MD Piter Broderick MD Phone: [phone]
[2024-12-28] MEDS: SODIUM CHLORIDE 0.9% 1,000 ML 125 ML IV (03:48)
[2024-12-28] MEDS: PIPERACILLIN/TAZO 3.375 GM in SODIUM CHLORIDE 0.9% 100 ML IV ×3 (05:53→21:11)
[2024-12-28] MEDS: HYDROMORPHONE 0.5 MG INJ IV (05:53)
[2024-12-28] MEDS: ONDANSETRON 4 MG/2 ML INJ IV (08:48)
[2024-12-28] MEDS: ACETAMINOPHEN 325 MG TABLET 975 MG PO (08:48)
[2024-12-28] MEDS: LACTATED RINGERS 1,000 ML 42 ML IV ×2 (08:48→15:50)
--- NOTE | 2024-12-28 09:09 | PM.PREOP ---
Pre-operative Note COVID-19 COVID-19 status: Not tested Interval Note History & Physical reviewed/Exam performed by Physician: Yes Changes to H&P: No ASA Class (for procedural sedation): II
--- NOTE | 2024-12-28 10:00 | SUR.OPER ---
Supine on padded OR bed, head on pillow, arms secured on padded arm boards at <90 degrees abduction, legs uncrossed, safety belt at thigh, foot board.
[2024-12-28] MEDS: BUPIVACAINE 0.5% W/ EPI (PF) 30 ML VIAL INJ (10:08)
[2024-12-28] MEDS: iopamidoL 30 ML VIAL INJ (10:09)
--- NOTE | 2024-12-28 10:54 | PC.NURSE ---
Addendum entered by Peter Navarro R.N. 12/28/24 15:29: down to MRI. Back now and sitting up in recliner after voiding in BR. Gait fairly steady. Addendum entered by Peter Navarro R.N. 12/28/24 12:41: Pt arrived via PACU accompanied by Tejas VILLANUEVA. Pt alert but groggy, aware on transfer back to room. This RN spoke with Pt's partner briefly. Partner will call back a bit later. Pt will call Partner and son shortly. Surgical site intact, belly soft. VS's taken and scds applied. Pt settled to room, Calllight in reach. Original Note: Pt awake and alert conversant, discussed plan of care. Or called to say he was going early. Pt appraised of the change. Pt off floor around 09:00. Pt continues off floor at present time.
--- NOTE | 2024-12-28 11:21 | P.OP_ITS ---
Operative Date/Time/Diagnoses Date of procedure: 12/28/24 Time of procedure: 11:22 Pre-op diagnosis: Acute cholecystitis Post-op diagnosis: same Procedure & Clinicians Procedure: Laparoscopic cholecystectomy Same procedure as scheduled: Yes Surgeon: Alex Rivas Home Health Administrator: Davey Goss Anesthesia Type: General Operative Notes Procedure in detail: The patient was on antibiotics. The patient was brought to the operating room and placed on the table in the supine position. General endotracheal anesthesia was induced. The abdomen was prepped and draped. A time-out was performed. We made a 1 cm infraumbilical incision. We dissected down to the base of the umbilical stalk using cautery. We grasped the umbilical stalk with a Dawn clamp to elevate the abdominal wall. We scored the fascia in the midline with cautery. We pierced the peritoneum with a Peon clamp. The Mohit port was placed and the abdomen was insufflated to 15 mmHg. A 5 mm 30 degree laparoscopic was inserted. There was no evidence of any injury from the entry. Next, we placed 5 mm ports in the subxiphoid position and right upper quadrant at the midclavicular line and anterior axillary line. The patient was then positioned in reverse Trendelenburg and the table was tilted to the left. The gallbladder was quite tense and distended and he had to be drained with a large bore needle and syringe. We aspirated approximately 50 mL of dark bile. There were adhesions of visceral fat over the gallbladder source of which were dissected with a combination of hook cautery and blunt dissection. We then dissected the cystic structures with a combination of hook cautery and blunt dissection. We skeletonized the cystic duct and artery. We obtained a critical view. We attempted the cholangiogram however contrast could not be injected into the common duct due to some sort of obstruction. We attempted to pass the 5 Vietnamese ureteral catheter but it would not advance more than about 1 cm through the cystic duct. We attempted to pass a 0.035 mm guidewire but it also would not pass a point near the cystic duct common duct junction. We aborted the cholangiogram. We placed clips on the cystic duct and artery and divided the cystic duct and artery sharply between the clips. The gallbladder was then dissected off the liver and placed in a specimen retrieval bag. We irrigated the right upper quadrant and all the aspirate returned clear. We then removed the 5 mm ports under direct vision we removed the Mohit port. We then injected some local into the fascia and closed the fascia with 2 interrupted 0 Vicryl sutures. The skin incisions were closed with 4-0 Monocryl and Steri-Strips were applied. Band-Aids were applied over the Steri-Strips. EBL: 20 mL Specimen: Gallbladder and contents Post-operative Condition: stable Disposition: PACU
--- NOTE | 2024-12-28 11:54 | SUR.PHASEI ---
Report called to Peter.
--- NOTE | 2024-12-28 12:07 | SUR.PHASEI ---
BP increasing. Patient denied pain. Dr. Nina notified. Patient's home BP medications ordered per MD. Verified meds and doses with patient.
--- NOTE | 2024-12-28 12:22 | SUR.PHASEI ---
Patient transferred to the floor. Bedside report given to Peter.
[2024-12-28] MEDS: hydroCHLOROthiazide 25 MG TABLET 12.5 MG PO (13:08)
[2024-12-28] MEDS: LOSARTAN 50 MG TABLET 100 MG PO (13:08)
[2024-12-28] MEDS: AMLODIPINE 5 MG TABLET PO (13:09)
--- NOTE | 2024-12-28 13:15 | DI.RAD.S_ITS ---
PROCEDURE: XR CHOLANGIOGRAM OPERATIVE INDICATIONS: operative cholangiogram. COMPARISON: [facility], CT, CT ABDOMEN PELVIS W CON, 12/26/2024, 23:32. [facility], MR, MR ABDOMEN WO CON, 12/28/2024, 14:37. FINDINGS: Biliary ducts: The surgeon injected contrast into the biliary ducts after cannulation of the cystic duct stump. Visualized intra- and extrahepatic bile ducts are normal in caliber, without strictures. No intraluminal filling defects to suggest retained ductal stones or sludge. No evidence for iatrogenic ductal injury. Duodenum: Contrast flows promptly through the sphincter of Oddi into the duodenum, which appears normal in caliber. IMPRESSION: Intra operative cholangiogram as above. Dictated by: Rhonda Huston M.D. on 12/29/2024 at 23:10 Approved by: Rhonda Huston M.D. on 12/29/2024 at 23:11
[2024-12-28 13:29] LABS: Alanine Aminotransferase 118 IU/L (<50); Albumin 3.6 g/dL (3.5-5.0); Albumin Globulin Ratio 1.4 (1.0-2.8); Alkaline Phosphatase 132 U/L (38-126); Aspartate Aminotransferase 133 IU/L (17-59); BUN Creatinine Ratio 15.6 (6-22); Bilirubin Total 2.7 mg/dL (0.2-1.3); Blood Urea Nitrogen 10 mg/dL (9-20); Calcium 8.4 mg/dL (8.4-10.2); Carbon Dioxide 23 mmol/L (22-32); Chloride 104 mmol/L (98-107); Estimated Glomerular Filt Rate > 60 mL/min (>60); Globulin 2.6 g/dL (1.7-4.1); Glucose 130 mg/dL (80-110); HEMOLYSIS < 15 (0-50); Potassium 3.9 mmol/L (3.4-5.1); Sodium 134 mmol/L (137-145); Total Protein 6.2 g/dL (6.3-8.2)
--- NOTE | 2024-12-28 14:03 | DI.MRI.S_ITS ---
PROCEDURE: MR ABDOMEN WO CON INDICATIONS: question common duct stone TECHNIQUE: Coronal HASTE through the abdomen, axial 2-D FLASH in- and [id number], and breath-hold T2 FSE with fat saturation through the biliary system and pancreas. Oblique coronal and axial thin-slice HASTE, radial thick-slab HASTE centered on the extrahepatic bile ducts. Intravenous secretin: Not requested. COMPARISON: [facility], CT, CT ABDOMEN PELVIS W CON, 12/26/2024, 23:32. [facility], CR, XR CHOLANGIOGRAM OPERATIVE, 12/28/2024, 10:15. FINDINGS: Image quality: Diagnostic Lower chest: Mild basal atelectasis. Lungs are not well evaluated on MRI Liver: Unremarkable Gallbladder and biliary system: Absent. CBD is nondilated at 5-6 mm. At the distal CBD, possible small eccentric filling defect is present (3/14, 13/10) Pancreas: No ductal dilation Spleen: Nonenlarged Adrenals: No discrete nodules Kidneys: Scattered renal cysts. No hydronephrosis. There also parapelvic cysts Vessels and lymph nodes: No pathologic lymph nodes by size criteria. No abdominal aortic aneurysm. Bowel and peritoneum: Mild ascites, probably postsurgical. No bowel obstruction. Body wall: Unremarkable Bones: There are degenerative osseous changes. IMPRESSION: CBD is overall nondilated at 5-6 mm. At the distal CBD just proximal to the ampulla, there is a questionable eccentric filling defect (3/14, 3/10), possibly representing adherent sludge versus a nonobstructing small stone. Mild abdominal ascites. Other findings above. Dictated by: Osiel Sung M.D. on 12/28/2024 at 16:05 Approved by: Osiel Sung M.D. on 12/28/2024 at 16:12
--- NOTE | 2024-12-28 15:42 | PM.PN.1 ---
Subjective Subjective Interval history: S: He was doing well after his laparoscopic cholecystectomy. His bilirubin was 2.7 and an intraoperative cholangiogram was unrevealing. An MRCP was ordered. MRCP is read as no stone, but there is dilation of the duct consistent with possible sludge. This is discussed with surgery. We will feed him tonight and watch him overnight repeat liver functions in the morning. Exam Vital Signs (past 8 hours): - 12/28/24 08:00 12/28/24 08:37 12/28/24 11:26 Temperature 97.4 F L 99.4 F 99.2 F Pulse Rate 66 66 76 Respiratory Rate 18 16 12 Blood Pressure 157/94 H 162/82 H 127/73 Pulse Oximetry 95 98 97 Oxygen Delivery Method Room Air Room Air Oxygen Flow Rate 0 12/28/24 11:31 12/28/24 11:36 12/28/24 11:47 Temperature Pulse Rate 76 70 68 Respiratory Rate 16 13 13 Blood Pressure 125/75 151/89 H 158/91 H Pulse Oximetry 96 96 96 Oxygen Delivery Method Nasal Cannula Room Air Nasal Cannula Oxygen Flow Rate 2 2 12/28/24 11:54 12/28/24 12:09 12/28/24 12:17 Temperature 98.3 F 97.6 F Pulse Rate 75 68 65 Respiratory Rate 12 11 L 18 Blood Pressure 172/105 H 178/103 H 169/94 H Pulse Oximetry 95 97 95 Oxygen Delivery Method Room Air Room Air Oxygen Flow Rate 0 12/28/24 12:47 12/28/24 13:08 12/28/24 13:17 Temperature Pulse Rate 62 62 58 L Respiratory Rate 16 Blood Pressure 156/91 H 150/91 H 149/87 H Pulse Oximetry 91 92 Oxygen Delivery Method Oxygen Flow Rate 0 0 12/28/24 14:17 12/28/24 15:17 Temperature 97.2 F L 98 F Pulse Rate 58 L 66 Respiratory Rate Blood Pressure 142/84 H 160/84 H Pulse Oximetry 98 96 Oxygen Delivery Method Oxygen Flow Rate 0 0 Oxygen Delivery Method Room Air Oxygen Flow Rate 0 Narrative Exam Narrative: NAD, alert and oriented. Fluent speech. Lungs are clear, normal rate and effort. Heart is regular, no murmur gallop or rub. Abdomen is soft, non distended. Extremities are free of edema. Objective Labs 12/26/24 18:29 12/28/24 12:58 Labs: Laboratory Results - last 24 hr 12/28/24 12:58 Sodium 134 L Potassium 3.9 Chloride 104 Carbon Dioxide 23 BUN 10 Creatinine 0.64 L Estimated GFR > 60 BUN/Creatinine Ratio 15.6 Glucose 130 H Calcium 8.4 Total Bilirubin 2.7 H AST 133 H ALT 118 H Alkaline Phosphatase 132 H Total Protein 6.2 L Albumin 3.6 Globulin 2.6 Albumin/Globulin Ratio 1.4 PFSH Medical History Uncontrolled hypertension Acute cholecystitis Hearing loss (~2014) Cardiac arrhythmia History of kidney stones Family history of prostate cancer No significant medical problems Family History Father Stroke Mother Cancer Grandfather History of heart disease Grandfather History of heart disease Social History household members: spouse Smoking Status: Never smoker alcohol intake: current Assessment & Plan Assessment & Plan narrative: 1. S/P laparoscopic cholecystectomy, active. 2. Elevated bilirubin with MRCP that does not reveal an impacted or obstructing stone, new and active. Plan: -regular diet tonight. -out of bed, advance activity. -repeat liver functions in the morning. WERO: 12/29. Time-Based Coding :: [TOTAL MINUTES] spent with patient and on the chart (including review of chart, obtaining history, exam, reviewing outside data, placing orders, documenting exam and treatment plan, and counseling patient) on [DATE].
[2024-12-28] MEDS: OXYCODONE IR 5 MG TABLET PO (19:57)
[2024-12-28] MEDS: SENNOSIDES 8.6 MG TABLET PO (21:11)
[2024-12-29] MEDS: HYDROMORPHONE 0.5 MG INJ IV (00:57)
[2024-12-29 02:12] VITALS: BP 123/69; PULSE 65; RESP 15; TEMP 36.6; O2SAT 98
[2024-12-29] MEDS: PIPERACILLIN/TAZO 3.375 GM in SODIUM CHLORIDE 0.9% 100 ML IV (05:23)
[2024-12-29] MEDS: OXYCODONE IR 5 MG TABLET PO ×2 (05:23→11:05)
[2024-12-29 08:31] LABS: Hematocrit 34.6 % (41-53); Mean Corpuscular HGB Conc 34.8 % (30-36); Mean Corpuscular Hemoglobin 32.2 PG (26-34); Mean Corpuscular Volume 92.8 fL (80-100); Platelet Count 174 X10^3/uL (150-400); Red Blood Cell Count 3.73 X10^6/uL (4.5-5.9); Red Cell Distribution Width 13.7 % (11.6-14.8); White Blood Cell Count 10.4 X10^3/uL (4.5-11.0)
[2024-12-29 08:47] LABS: Alanine Aminotransferase 89 IU/L (<50); Albumin Globulin Ratio 1.4 (1.0-2.8); Alkaline Phosphatase 118 U/L (38-126); Aspartate Aminotransferase 81 IU/L (17-59); Bilirubin Total 1.4 mg/dL (0.2-1.3); Blood Urea Nitrogen 11 mg/dL (9-20); Calcium 8.6 mg/dL (8.4-10.2); Carbon Dioxide 24 mmol/L (22-32); Chloride 103 mmol/L (98-107); Estimated Glomerular Filt Rate > 60 mL/min (>60); Globulin 2.2 g/dL (1.7-4.1); Glucose 118 mg/dL (80-110); HEMOLYSIS < 15 (0-50); Potassium 3.4 mmol/L (3.4-5.1); Sodium 134 mmol/L (137-145); Total Protein 5.2 g/dL (6.3-8.2)
[2024-12-29 09:50] VITALS: BP 145/76; PULSE 63; RESP 16; TEMP 36.8; O2SAT 95
--- NOTE | 2024-12-29 10:24 | PM.DS.1 ---
History of Present Illness History of Present Illness Chief complaint: abd pain, vomiting Narrative: From night doctor: 74 y/o Male with h/o HTN, and OA of knee, presented to ED, with sudden onset of RUQ pain, of moderate intensity, 6-7 /10, started around 2 pm on day of ED visit ( 12/26) after pt has had his lunch. He noted pain radiating to epigastric are. No rad to the back or lower abdomen. He had nausea and had several bouts of bilious vomiting, non bloody , no coffee grounds. No Diarrhea. Was also have chills and hot and cold sweats. Denies fever. No CP, SOB, Lioght Headedness or Syncope. No Dysuria. He denies prior h/o gall stones or bile stones, or gb problems. He went to the local fire dept , as his RUQ pain was worsening. He was advised to go to ED. ED labs/ imaging, meds given reviewed. As his CTAP indicated Gall stones with possibility of gb inflammation, as well as Moderate Leukocytosis , and RUQ/ Epigastric pain, Gen Surgery, Dr Malone was consulted per ED. Dr Malone agreed with admitting pt to the medicine service, as well as IV abx / Zosyn, and advised pt to be NPO , in anticipation of gb surgery. He would see pt in the morning. Discharge Providers Provider Date of admission: 12/27/24 03:13 Discharge Date: 12/29/24 Primary care physician: Pelon Britton MD Consults: 12/27/24 08:19 Consult to General Surgery Routine Comment: Consulting Provider: Alex Rivas Reason for consultation: cholecystitis Has provider been notified: Yes Discharge provider: Camilo Echeverria MD Summary Hospital Course Discharge Diagnosis: 1. Cholecystitis S/P laparoscopic cholecystectomy, resolved. 2. Elevated bilirubin with MRCP that does not reveal an impacted or obstructing stone, new and improved. 3. HTN, stable. Hospital Course: He was admitted for cholecystitis he was started on IV antibiotics. He was treated with pain medications and ultimately underwent a cholecystectomy. This was uncomplicated. He had an elevated bilirubin at 2.7 after, he was given a diet after a MRCP revealed probable mild dilation of the duct with sludge but no stone. His bilirubin improved overnight and he was felt to be stable for discharge with close follow up. He was discussed with surgery in the day of discharge. Status at Discharge Cognitive/behavioral status at discharge: oriented Functional status at discharge: independent ambulation Overall status at discharge: patient is back to baseline Time Spent with Patient Time spent: Greater than 30 minutes Exam Vital Signs (past 8 hours): - 12/29/24 09:50 Temperature 98.2 F Pulse Rate 63 Respiratory Rate 16 Blood Pressure 145/76 H Pulse Oximetry 95 Oxygen Delivery Method Room Air Oxygen Flow Rate 0 Narrative Exam Narrative: NAD, alert and oriented. Fluent speech. Lungs are clear, normal rate and effort. Heart is regular, no murmur gallop or rub. Abdomen is soft, non distended. Extremities are free of edema. Laparoscopy wounds are unremarkable Objective ECG Impression: Sinus bradycardia Minimal voltage criteria for LVH, may be normal variant ( [place] product ) Imaging Multiple studies:: Radiologist's impression: MRCP: Mild dilation of common bile duct with no stone visualized. There is probable sludge. Chest x-ray: No acute cardiopulmonary abnormality is seen. Abdomen and pelvis CT: 1. Gallbladder is distended with possible wall thickening. Layering gallstones are seen as well as pericholecystic fluid. Findings concerning for acute cholecystitis. 2. Diverticulosis without evidence of acute diverticulitis. 3. Calcification in the posterior pelvis measuring 3 cm of uncertain etiology. 4. Please see above for additional findings. Labs 12/29/24 07:25 12/29/24 08:13 Labs: Laboratory Results - last 24 hr 12/28/24 12/29/24 12/29/24 12:58 07:25 08:13 WBC 10.4 RBC 3.73 L Hgb 12.0 L Hct 34.6 L MCV 92.8 MCH 32.2 MCHC 34.8 RDW 13.7 Plt Count 174 Sodium 134 L 134 L Potassium 3.9 3.4 Chloride 104 103 Carbon Dioxide 23 24 BUN 10 11 Creatinine 0.64 L 0.61 L Estimated GFR > 60 > 60 BUN/Creatinine Ratio 15.6 18.0 Glucose 130 H 118 H Calcium 8.4 8.6 Total Bilirubin 2.7 H 1.4 H AST 133 H 81 H ALT 118 H 89 H Alkaline Phosphatase 132 H 118 Total Protein 6.2 L 5.2 L Albumin 3.6 3.0 L Globulin 2.6 2.2 Albumin/Globulin Ratio 1.4 1.4 [facility] Medical History Uncontrolled hypertension Acute cholecystitis Hearing loss (~2014) Cardiac arrhythmia History of kidney stones Family history of prostate cancer No significant medical problems Family History Father Stroke Mother Cancer Grandfather History of heart disease Grandfather History of heart disease Social History household members: spouse Smoking Status: Never smoker alcohol intake: current Discharge Assessment & Plan Assessment and Plan Assessment: 1. Cholecystitis S/P laparoscopic cholecystectomy, resolved. Plan of Treatment: Discharge home pain medications. Follow up with PCP within 6 days with repeat chemistry profile. Discuss elevated bilirubin and possible referral to GI. General surgery follow up within 2 weeks. Discharge Plan Discharge Plan Patient Disposition: Home Provider Discharge Comment: Stable for discharge after a laparoscopic cholecystectomy. He would elevated bilirubin of 2.7 which improved on the day of discharge. He was a chronic elevated bilirubin of 1.2 to 1.5. Discharge orders & Medications Prescriptions: New oxycodone 5 mg capsule 5 mg PO Q8H PRN (Reason: pain) Qty: 14 0RF Continued aspirin 81 MG tablet,chewable 81 mg PO QDAY Qty: 0 losartan-hydrochlorothiazide 100-25 mg tablet 1 tab PO DAILY Qty: 90 1RF amlodipine 5 mg tablet 5 mg PO DAILY Qty: 90 1RF Rx Instructions: pt hasn't taken it yet Follow up/Referrals: Pelon Britton MD [Primary Care Provider] - Discharge Health Status Multidrug resistant organism: No MDRO Diet/Activity/Treatments Diet: Diet as Tolerated Skin/Wound/Dressing Care Report to your healthcare provider any signs of infection, such as:: chills, fever, increased pain, unusual drainage and unusual redness Visit Report/Discharge Packet Instructions: DI for Laparoscopy, DI for Prescription Opioid Use, DI for Laparoscopic Cholecystectomy, [facility]: Wound Care Stand Alone Forms: Patient Portal/API Discharge Data Primary Care Provider: Pelon Britton Attending Provider: Abigail Maher Admyamileth Date/Time: 12/27/24 03:13
[2024-12-29 11:03] VITALS: BP 145/76; PULSE 63
[2024-12-29] MEDS: hydroCHLOROthiazide 25 MG TABLET 12.5 MG PO (11:03)
[2024-12-29] MEDS: LOSARTAN 50 MG TABLET 100 MG PO (11:03)
[2024-12-29] MEDS: DOCUSATE 100 MG CAPSULE PO (11:40)
--- NOTE | 2024-12-29 13:07 | CM.DPC ---
DCP Cont. Reviewed EMR and team rounds for status updates. Pt has been medically cleared for home d/c. This VETERINARY NURSE did provide him with a Medical Priority Boarding Pass, as there were no further reservations available for today. No further CM needs identified at this time.
== END 2024-12-29 13:35 | disposition home or self-care (01) ==
LOC: ED 12-27 03:14 → AC 12-27 06:43
PROVIDERS: Emergency Medicine; Hospitalist; Surgery; Admitting Provider Hospitalist; Emergency Provider Student in an Organized Health Care Education/Training Program; PCP Family Medicine; Referring Provider Student in an Organized Health Care Education/Training Program; Visit Provider Hospitalist
PROC: 0FT44ZZ Resection of Gallbladder, Percutaneous Endoscopic Approach (ICD-10-PCS; CPT 47563; principal; 2024-12-28 13:15)
DX: K80.00 Calculus of gallbladder with acute cholecystitis without obstruction (principal); I10 Essential (primary) hypertension; E78.5 Hyperlipidemia, unspecified; K82.8 Other specified diseases of gallbladder
CPT/HCPCS: 47563; 36415; 71045; 74177; 74181; 74300; 80053; 81001; 82550; 83605; 83690; 83735; 84484; 85025; 85027; 93005; 96361; 96365; 96375; 96376; 99222; 99284; G0378; A9579; J0330; J1100; J1171; J2270; J2405; J2543; J2704; J3010; J3490; Q9967

== ENCOUNTER → 2025-03-23 09:59 | Outpatient (CLI) | payer MEDICARE, OTHER, SELFPAY ==
[2024-12-27 04:18] VITALS: BMI 22.4
[2025-03-23 20:25] LABS: Add Manual Diff / Slide Review NO; Basophils Absolute Auto 0 /uL (0-100); Basophils Percent Auto 0.8 % (0-2); Eosinophils Absolute Auto 200 /uL (0-450); Eosinophils Percent Auto 3.5 % (2-4); Hematocrit 39.2 % (41-53); Hemoglobin 13.4 g/dL (13.5-17.5); Lymphocytes Absolute Auto 1800 /uL (1100-4500); Lymphocytes Percent Auto 34.2 % (25-40); Mean Corpuscular HGB Conc 34.3 % (30-36); Mean Corpuscular Hemoglobin 32.1 PG (26-34); Mean Corpuscular Volume 93.6 fL (80-100); Monocytes Absolute Auto 500 /uL (0-900); Monocytes Percent Auto 8.7 % (3-14); Neutrophils Absolute Auto 2800 /uL (1500-7000); Neutrophils Percent Auto 52.8 % (50-75); Platelet Count 224 X10^3/uL (150-400); Red Blood Cell Count 4.19 X10^6/uL (4.5-5.9); Red Cell Distribution Width 13.9 % (11.6-14.8); White Blood Cell Count 5.4 X10^3/uL (4.5-11.0)
[2025-03-23 20:39] LABS: Alanine Aminotransferase 29 IU/L (<50); Albumin 4.1 g/dL (3.5-5.0); Albumin Globulin Ratio 1.6 (1.0-2.8); Alkaline Phosphatase 167 U/L (38-126); Aspartate Aminotransferase 37 IU/L (17-59); BUN Creatinine Ratio 17.6 (6-22); Bilirubin Total 1.2 mg/dL (0.2-1.3); Blood Urea Nitrogen 13 mg/dL (9-20); Calcium 9.2 mg/dL (8.4-10.2); Carbon Dioxide 26 mmol/L (22-32); Chloride 105 mmol/L (98-107); Cholesterol 193 mg/dL (140-199); Estimated Glomerular Filt Rate > 60 mL/min (>60); Globulin 2.5 g/dL (1.7-4.1); Glucose 94 mg/dL (70-99); HDL Cholesterol 44 mg/dL (40-60); HEMOLYSIS < 15 (0-50); LDL Cholesterol Calculated 134 mg/dL (<100); Sodium 138 mmol/L (137-145); Total Protein 6.6 g/dL (6.3-8.2); Triglycerides 73 mg/dL (35-150)
[2025-03-23 20:53] LABS: Appearance Urine UA CLEAR; Bilirubin Urine UA NEGATIVE (NEGATIVE); Color Urine UA YELLOW; Glucose Urine UA NEGATIVE (Negative); Ketones Urine UA NEGATIVE (NEGATIVE); Leukocyte Esterase Urine UA NEGATIVE (NEGATIVE); Nitrite Urine UA NEGATIVE (Negative); Occult Blood Urine UA NEGATIVE (Negative); Protein Urine UA NEGATIVE (Negative); Specific Gravity Urine UA 1.025 (1.000-1.035); Urobilinogen Urine UA 0.2 E.U./dL (0.2)
[2025-03-23 21:01] LABS: Amorphous Sediment Urine 1+; Bacteria Urine None Seen; Calcium Oxalate Crystals Urine Few; Culture Indicated Urine Cult Not Indicated; RBC Urine None Seen (0-5/HPF); Squamous Epithelial Cell Urine 0-1 /HPF (0-5/HPF); Urine Volume 10mL (spun); WBC Urine 0-1/HPF (0-5/HPF)
[2025-03-23 21:07] LABS: TSH w/ Reflex to FT4 0.99 uIU/mL (0.47-4.68)
[2025-03-23 21:27] LABS: Prostate Specific Antigen Scrn 0.529 ng/mL (0.1-4.0)
== END ==
PROVIDERS: PCP Family Medicine; Visit Provider Family Medicine
DX: I10 Essential (primary) hypertension (principal); Z12.5 Encounter for screening for malignant neoplasm of prostate; K81.0 Acute cholecystitis; E78.5 Hyperlipidemia, unspecified; R79.89 Other specified abnormal findings of blood chemistry; R74.8 Abnormal levels of other serum enzymes; R31.9 Hematuria, unspecified
CPT/HCPCS: 80053; 80061; 81001; 84443; 85025; G0103

== ENCOUNTER → 2025-09-22 08:39 | Outpatient (CLI) | payer MEDICARE, OTHER, SELFPAY ==
[2024-12-27 04:18] VITALS: BMI 22.4
[2025-09-22 19:14] LABS: Add Manual Diff / Slide Review NO; Hematocrit 41.0 % (41-53); Hemoglobin 14.2 g/dL (13.5-17.5); Lymphocytes Absolute Auto 1800 /uL (1100-4500); Mean Corpuscular HGB Conc 34.5 % (30-36); Mean Corpuscular Hemoglobin 32.2 PG (26-34); Mean Corpuscular Volume 93.3 fL (80-100); Platelet Count 261 X10^3/uL (150-400)
[2025-09-22 19:42] LABS: Alanine Aminotransferase 13 IU/L (<50); Albumin 4.0 g/dL (3.5-5.0); Albumin Globulin Ratio 1.5 (1.0-2.8); Alkaline Phosphatase 146 U/L (38-126); Blood Urea Nitrogen 14 mg/dL (9-20); Calcium 9.4 mg/dL (8.4-10.2); Carbon Dioxide 28 mmol/L (22-32); Chloride 105 mmol/L (98-107); Cholesterol 169 mg/dL (140-199); Estimated Glomerular Filt Rate > 60 mL/min (>60); Globulin 2.7 g/dL (1.7-4.1); Glucose 99 mg/dL (70-99); HDL Cholesterol 45 mg/dL (40-60); HEMOLYSIS 23 (0-50); Potassium 3.9 mmol/L (3.4-5.1); Sodium 139 mmol/L (137-145); Total Protein 6.7 g/dL (6.3-8.2); Triglycerides 71 mg/dL (35-150)
== END ==
PROVIDERS: PCP Family Medicine; Visit Provider Family Medicine
DX: D64.9 Anemia, unspecified (principal); I10 Essential (primary) hypertension; E78.2 Mixed hyperlipidemia; I49.9 Cardiac arrhythmia, unspecified
CPT/HCPCS: 80053; 80061; 85025